=== PATIENT | female | born 1980 | race Caucasian/White ===

== ENCOUNTER 2017-02-28 16:59 | Emergency (ER) | payer SELFPAY ==
[~2017-02-28] VITALS: Ht 160 cm; Wt 54.9 kg
[~2017-02-28 16:59] MED LIST: ASPI-515 PO; CEFT2FRO2 IV; DOCU-30 PO; FERR325T20 PO; GABA100C8 PO; GABA300C10 PO; GABA600T2 PO; HUM100VI6 SC; HYDR-3240 PO; IBUP-1222 PO; INSU100C5 SQ-INSULIN; INSU100I18 SQ-INSULIN; INSU100I28 SQ-INSULIN; INSU100I7 SQ-INSULIN; INSU100V5 SQ-INSULIN; INSU100V8 SQ; METF-86 PO; METO10TA2 PO; METO5TAB57 PO; OMEP40CA6 PO; ONDA4TAB7 PO; OXYC1TAB7 PO; TRAM-385 PO; TRAM50TA2 PO
[2017-02-28] MEDS ORDERED: SODIUM CHLORIDE FLUSH 10ML SYR IVF ONE (17:30)
[2017-02-28] MEDS ORDERED: ONDANSETRON 2MG/ML, 2ML IVPush ONE (17:30)
[2017-02-28] MEDS ORDERED: ONDANSETRON 2MG/ML, 2ML ONE (17:42)
[2017-02-28 18:05] LABS: BLOOD UREA NITROGEN 9 mg/dL (7-18)
[2017-02-28] MEDS ORDERED: SODIUM CHLORIDE 0.9% 1,000ML IVBOLUS ONE (18:30)
[2017-02-28] MEDS ORDERED: KETOROLAC 30 MG/1 ML ONE (18:51)
[2017-02-28] MEDS ORDERED: KETOROLAC 30 MG/1 ML IVPush ONE (19:00)
[2017-02-28 19:51] VITALS: BP 119/75
== END 2017-02-28 19:53 | disposition home or self-care (01) ==
LOC: ED 18:05
DX: R10.11 Right upper quadrant pain (principal); E11.65 Type 2 diabetes mellitus with hyperglycemia; Z86.73 Personal history of transient ischemic attack (TIA), and cerebral infarction without residual deficits; Z90.49 Acquired absence of other specified parts of digestive tract; E11.40 Type 2 diabetes mellitus with diabetic neuropathy, unspecified
CPT/HCPCS: 36415; 74176; 80048; 81003; 82040; 84703; 85025; 96361; 96374; 96375; 99285; J1885; J2405; J7030

== ENCOUNTER 2017-04-01 01:03 | Emergency (ER) | payer SELFPAY ==
[~2017-04-01] VITALS: Ht 160 cm; Wt 54.2 kg
[~2017-04-01 01:03] MED LIST changes: +GABA-826 PO; -GABA100C8 PO
[2017-04-01] MEDS ORDERED: SODIUM CHLORIDE FLUSH 10ML SYR IVF ONE (03:00)
[2017-04-01] MEDS ORDERED: SODIUM CHLORIDE 0.9% 1,000ML IVBOLUS ONE (03:00)
[2017-04-01] MEDS ORDERED: ONDANSETRON 2MG/ML, 2ML IVPush ONE (03:00)
[2017-04-01] MEDS ORDERED: MORPHINE SULFATE 4 MG/ML, 1ML IVPush PRN (03:00)
[2017-04-01] MEDS ORDERED: MORPHINE SULFATE 4 MG/ML, 1ML ONE (03:08)
[2017-04-01] MEDS ORDERED: ONDANSETRON 2MG/ML, 2ML ONE (03:08)
[2017-04-01 03:20] LABS: ASPARTATE AMINO TRANSFERASE 15 U/L (15-37); BLOOD UREA NITROGEN 17 mg/dL (7-18)
[2017-04-01 03:25] LABS: IS PT STATUS REG ER OR PRE ER? YES
[2017-04-01 04:43] VITALS: BP 103/67
== END 2017-04-01 04:46 | disposition home or self-care (01) ==
LOC: ED 04:30
DX: R07.89 Other chest pain (principal); E11.65 Type 2 diabetes mellitus with hyperglycemia; E87.1 Hypo-osmolality and hyponatremia; K21.9 Gastro-esophageal reflux disease without esophagitis; Z79.4 Long term (current) use of insulin; F17.200 Nicotine dependence, unspecified, uncomplicated
CPT/HCPCS: 36415; 71020; 80053; 82010; 82803; 82962; 84484; 85025; 85379; 93005; 96361; 96374; 96375; 99285; J2405; J7030

== ENCOUNTER 2017-05-01 23:41 | Emergency (ER) | payer OTHER ==
[~2017-05-01] VITALS: Ht 160 cm; Wt 58.2 kg
[2017-05-02] MEDS ORDERED: SODIUM CHLORIDE FLUSH 10ML SYR IVF ONE
[2017-05-02] MEDS ORDERED: ONDANSETRON 2MG/ML, 2ML IVPush ONE
[2017-05-02] MEDS ORDERED: SODIUM CHLORIDE 0.9% 1,000ML IV ONE
[2017-05-02] MEDS ORDERED: MORPHINE SULFATE 4 MG/ML, 1ML IVPush PRN
[2017-05-02 00:15] LABS: HEMATOCRIT 40.9 % (34.6-47.8); HEMOGLOBIN 13.9 g/dL (11.7-16.4); WHITE BLOOD COUNT 7.4 x10^3/uL (3.4-10)
[2017-05-02] MEDS ORDERED: MORPHINE SULFATE 4 MG/ML, 1ML ONE (00:25)
[2017-05-02] MEDS ORDERED: ONDANSETRON 2MG/ML, 2ML ONE (00:25)
[2017-05-02 00:40] LABS: BLOOD UREA NITROGEN 19 mg/dL (7-18)
[2017-05-02 00:46] LABS: ASPARTATE AMINO TRANSFERASE 20 U/L (15-37)
[2017-05-02 01:28] VITALS: BP 106/61
[2017-05-02] MEDS ORDERED: POTASSIUM CHLORIDE 20 MEQ TAB.ER.PRT ONE (02:19)
[2017-05-02] MEDS ORDERED: INSULIN SINGLE DOSE, ER SQ-INSULIN ONE (02:20)
== END 2017-05-02 05:07 ==
LOC: ED 23:59
DX: R10.9 Unspecified abdominal pain (principal); E11.65 Type 2 diabetes mellitus with hyperglycemia; Z79.4 Long term (current) use of insulin; E87.1 Hypo-osmolality and hyponatremia; Z91.14 Patient's other noncompliance with medication regimen; K21.9 Gastro-esophageal reflux disease without esophagitis; Z90.49 Acquired absence of other specified parts of digestive tract; Z91.19 Patient's noncompliance with other medical treatment and regimen
CPT/HCPCS: 36415; 74176; 80053; 81003; 82010; 82803; 82962; 83690; 84703; 85025; 96361; 96374; 96375; 99285; J2405; J7030

== ENCOUNTER 2017-06-15 18:48 | Emergency (ER) | payer OTHER ==
[~2017-06-15] VITALS: Ht 160 cm; Wt 57.8 kg
[~2017-06-15 18:48] MED LIST changes: +DOCU-131 PO; -DOCU-30 PO; +FERR325T18 PO; -FERR325T20 PO; +METF-162 PO; -METF-86 PO
[2017-06-15] MEDS ORDERED: SODIUM CHLORIDE 0.9% 1,000ML IVBOLUS ONE (19:30)
[2017-06-15] MEDS ORDERED: ONDANSETRON 2MG/ML, 2ML IVPush ONE (19:30)
[2017-06-15] MEDS ORDERED: SODIUM CHLORIDE FLUSH 10ML SYR IVF ONE (19:30)
[2017-06-15] MEDS ORDERED: MORPHINE SULFATE 4 MG/ML, 1ML IVPush PRN (19:30)
[2017-06-15 19:35] LABS: PATH.CAST-FLAG NOT PRESENT; SPERM-FLAG NOT PRESENT; SRC-FLAG NOT PRESENT; XTAL-FLAG NOT PRESENT; YLC-FLAG NOT PRESENT
[2017-06-15] MEDS ORDERED: MORPHINE SULFATE 4 MG/ML, 1ML ONE (19:41)
[2017-06-15] MEDS ORDERED: ONDANSETRON 2MG/ML, 2ML ONE (19:41)
[2017-06-15 19:51] LABS: ASPARTATE AMINO TRANSFERASE 12 U/L (15-37); BLOOD UREA NITROGEN 12 mg/dL (7-18)
[2017-06-15 19:52] LABS: HEMOGLOBIN 13.8 g/dL (11.7-16.4); WHITE BLOOD COUNT 5.8 x10^3/uL (3.4-10)
[2017-06-15] MEDS ORDERED: CEFTRIAXONE PMX 1GM/50ML 50 ML ONE (20:56)
[2017-06-15] MEDS ORDERED: CEFTRIAXONE PMX 1GM/50ML 50 ML IV ONE (21:00)
[2017-06-15 21:24] VITALS: BP 105/67
== END 2017-06-15 21:26 | disposition home or self-care (01) ==
LOC: ED 21:06
DX: N30.01 Acute cystitis with hematuria (principal); K21.9 Gastro-esophageal reflux disease without esophagitis; E11.65 Type 2 diabetes mellitus with hyperglycemia; Z86.73 Personal history of transient ischemic attack (TIA), and cerebral infarction without residual deficits
CPT/HCPCS: 36415; 76770; 76857; 80053; 81001; 83690; 84703; 85025; 87086; 96361; 96365; 96375; 99285; J0696; J2405; J7030

== ENCOUNTER 2017-06-16 19:33 | Emergency (ER) | payer OTHER ==
[~2017-06-16] VITALS: Ht 160 cm; Wt 57.7 kg
[2017-06-16] MEDS ORDERED: CEFTRIAXONE PMX 1GM/50ML 50 ML IVPB ONE (20:00)
[2017-06-16] MEDS ORDERED: SODIUM CHLORIDE FLUSH 10ML SYR IVF ONE (20:00)
[2017-06-16] MEDS ORDERED: MORPHINE SULFATE 4 MG/ML, 1ML IVPush PRN (20:00)
[2017-06-16] MEDS ORDERED: SODIUM CHLORIDE 0.9% 1,000ML IVBOLUS ONE (20:00)
[2017-06-16] MEDS ORDERED: ONDANSETRON 2MG/ML, 2ML IVPush ONE (20:00)
[2017-06-16] MEDS ORDERED: MORPHINE SULFATE 4 MG/ML, 1ML ONE (20:29)
[2017-06-16] MEDS ORDERED: ONDANSETRON 2MG/ML, 2ML ONE (20:29)
[2017-06-16] MEDS ORDERED: CEFTRIAXONE PMX 1GM/50ML 50 ML ONE (20:32)
[2017-06-16 20:37] LABS: HEMATOCRIT 41.7 % (34.6-47.8); HEMOGLOBIN 14.1 g/dL (11.7-16.4); WHITE BLOOD COUNT 6.1 x10^3/uL (3.4-10)
[2017-06-16 20:45] LABS: ASPARTATE AMINO TRANSFERASE 10 U/L (15-37); BLOOD UREA NITROGEN 12 mg/dL (7-18)
[2017-06-16 22:31] VITALS: BP 122/61
[2017-06-16] MEDS ORDERED: OMNIPAQUE 350 MG/ML, 100ML BOTTLE ONE (23:04)
== END 2017-06-16 22:34 | disposition home or self-care (01) ==
LOC: ED 21:19
DX: N30.01 Acute cystitis with hematuria (principal); K21.9 Gastro-esophageal reflux disease without esophagitis; E11.65 Type 2 diabetes mellitus with hyperglycemia; E11.43 Type 2 diabetes mellitus with diabetic autonomic (poly)neuropathy; K31.84 Gastroparesis; Z90.49 Acquired absence of other specified parts of digestive tract
CPT/HCPCS: 36415; 74177; 80053; 83690; 85025; 96365; 96366; 96375; 99285; J0696; J2405; J7030; Q9967

== ENCOUNTER 2017-08-04 17:56 | Emergency (ER) | payer SELFPAY ==
[~2017-08-04] VITALS: Ht 160 cm; Wt 56.5 kg
[2017-08-04] MEDS ORDERED: ONDANSETRON 2MG/ML, 2ML IVPush ONE (18:30)
[2017-08-04] MEDS ORDERED: SODIUM CHLORIDE FLUSH 10ML SYR IVF ONE (18:30)
[2017-08-04] MEDS ORDERED: SODIUM CHLORIDE 0.9% 1,000ML IVBOLUS ONE (18:30)
[2017-08-04] MEDS ORDERED: HYDROmorphone 1 MG/ML, 1ML ONE ×2 (18:33→19:06)
[2017-08-04] MEDS ORDERED: ONDANSETRON 2MG/ML, 2ML ONE (18:34)
[2017-08-04] MEDS: HYDROmorphone 1 MG/ML, 1ML IVPush PRN ×2 (18:36→19:08)
[2017-08-04 18:41] LABS: HEMATOCRIT 44.4 % (34.6-47.8); HEMOGLOBIN 14.9 g/dL (11.7-16.4); WHITE BLOOD COUNT 7.2 x10^3/uL (3.4-10)
[2017-08-04 18:50] LABS: ASPARTATE AMINO TRANSFERASE 11 U/L (15-37); BLOOD UREA NITROGEN 10 mg/dL (7-18)
[2017-08-04 18:55] LABS: PATH.CAST-FLAG NOT PRESENT; SPERM-FLAG NOT PRESENT; SRC-FLAG NOT PRESENT; XTAL-FLAG NOT PRESENT; YLC-FLAG NOT PRESENT
[2017-08-04 18:58] VITALS: BP 118/70
== END 2017-08-04 19:14 | disposition home or self-care (01) ==
LOC: ED 18:47
DX: G89.29 Other chronic pain (principal); R10.31 Right lower quadrant pain; R10.32 Left lower quadrant pain; E11.65 Type 2 diabetes mellitus with hyperglycemia; F17.200 Nicotine dependence, unspecified, uncomplicated; K21.9 Gastro-esophageal reflux disease without esophagitis; E11.43 Type 2 diabetes mellitus with diabetic autonomic (poly)neuropathy; K31.84 Gastroparesis; Z90.49 Acquired absence of other specified parts of digestive tract
CPT/HCPCS: 36415; 80053; 81001; 83690; 84703; 85025; 96361; 96374; 96375; 96376; 99284; J1170; J2405; J7030

== ENCOUNTER 2017-08-06 23:46 | Emergency (ER) | payer SELFPAY ==
[~2017-08-06] VITALS: Ht 160 cm; Wt 57.3 kg
[2017-08-07] MEDS ORDERED: TRAM-47 PO (00:02)
[2017-08-07] MEDS ORDERED: ONDANSETRON 2MG/ML, 2ML IVPush ONE (00:30)
[2017-08-07] MEDS ORDERED: HYDROmorphone 1 MG/ML, 1ML ONE ×2 (00:39→01:49)
[2017-08-07] MEDS ORDERED: ONDANSETRON 2MG/ML, 2ML ONE (00:39)
[2017-08-07 00:54] LABS: PATH.CAST-FLAG NOT PRESENT; SPERM-FLAG NOT PRESENT; SRC-FLAG NOT PRESENT; XTAL-FLAG NOT PRESENT; YLC-FLAG NOT PRESENT
[2017-08-07 00:57] LABS: HEMATOCRIT 40.9 % (34.6-47.8); WHITE BLOOD COUNT 6.3 x10^3/uL (3.4-10)
[2017-08-07] MEDS: HYDROmorphone 1 MG/ML, 1ML IVPush PRN ×2 (00:57→01:57)
[2017-08-07 01:09] LABS: ASPARTATE AMINO TRANSFERASE 18 U/L (15-37); BLOOD UREA NITROGEN 12 mg/dL (7-18)
[2017-08-07] MEDS ORDERED: METOCLOPRAMIDE 5 MG/ML, 2ML IVPush ONE (01:30)
[2017-08-07] MEDS ORDERED: DIPHENHYDRAMINE 50 MG/ML, 1ML IVPush ONE (01:30)
[2017-08-07] MEDS ORDERED: OMNIPAQUE 350 MG/ML, 100ML BOTTLE ONE (01:33)
[2017-08-07] MEDS ORDERED: METOCLOPRAMIDE 5 MG/ML, 2ML ONE (01:49)
[2017-08-07] MEDS ORDERED: DIPHENHYDRAMINE 50 MG/ML, 1ML ONE (01:49)
[2017-08-07 04:02] VITALS: BP 111/64
== END 2017-08-07 04:07 | disposition home or self-care (01) ==
LOC: ED 08-07 01:26
DX: G89.29 Other chronic pain (principal); R10.84 Generalized abdominal pain; R10.31 Right lower quadrant pain; E10.65 Type 1 diabetes mellitus with hyperglycemia; K21.9 Gastro-esophageal reflux disease without esophagitis; F17.200 Nicotine dependence, unspecified, uncomplicated; Z90.49 Acquired absence of other specified parts of digestive tract; Z86.73 Personal history of transient ischemic attack (TIA), and cerebral infarction without residual deficits
CPT/HCPCS: 36415; 74177; 80053; 81001; 82962; 83690; 85025; 96374; 96375; 96376; 99285; J1170; J1200; J2405; J2765; Q9967

== ENCOUNTER 2017-09-19 19:52 | Emergency (ER) | payer OTHER ==
[~2017-09-19] VITALS: Ht 160 cm; Wt 55.0 kg
[~2017-09-19 19:52] MED LIST changes: +TRAM-47 PO
[2017-09-19 20:45] LABS: MICROSCOPIC AUTO
[2017-09-19] MEDS ORDERED: INSU100V8 SQ (20:47)
[2017-09-19] MEDS ORDERED: ONDANSETRON 2MG/ML, 2ML ONE (20:54)
[2017-09-19] MEDS ORDERED: MORPHINE SULFATE 4 MG/ML, 1ML ONE (20:54)
[2017-09-19 20:55] LABS: BASOPHILS # (AUTO) 0.02 x10^3/uL (0-0.1); BASOPHILS % (AUTO) 0 % (0-1); EOSINOPHILS # (AUTO) 0.04 x10^3/uL (0-0.4); EOSINOPHILS % (AUTO) 1 % (1-7); LYMPHOCYTES # (AUTO) 2.31 x10^3/uL (1-3.4); LYMPHOCYTES % (AUTO) 27 % (22-44); MD NO; MEAN CORPUSCULAR HEMOGLOBIN 28.4 pg (27.0-34.8); MEAN CORPUSCULAR HGB CONC 33.8 g/dL (32.4-35.8); MEAN CORPUSCULAR VOLUME 84.2 fL (80-100); MEAN PLATELET VOLUME 11.6 fL (7.4-10.4); MONOCYTES # (AUTO) 0.32 x10^3/uL (0.2-0.8); MONOCYTES % (AUTO) 4 % (2-9); NEUTROPHILS # (AUTO) 5.78 x10^3/uL (1.8-6.8); NEUTROPHILS % (AUTO) 68 % (42-75); PLATELET COUNT 200 x10^3/uL (130-400); RED BLOOD COUNT 4.89 x10^6/uL (3.82-5.3); RED CELL DISTRIBUTION WIDTH 13.8 % (9.6-15.2)
[2017-09-19] MEDS ORDERED: SODIUM CHLORIDE 0.9% 1,000ML IVBOLUS ONE (21:00)
[2017-09-19] MEDS ORDERED: SODIUM CHLORIDE FLUSH 10ML SYR IVF ONE (21:00)
[2017-09-19] MEDS ORDERED: ONDANSETRON 2MG/ML, 2ML IVPush ONE (21:00)
[2017-09-19] MEDS ORDERED: MORPHINE SULFATE 4 MG/ML, 1ML IVPush PRN (21:00)
[2017-09-19 21:04] LABS: ALBUMIN 3.5 g/dL (3.4-5.0); ANION GAP 10 mmol/L (5-15); CALCIUM 9.1 mg/dL (8.5-10.1); CHLORIDE 98 mmol/L (98-107)
[2017-09-19 21:10] LABS: ALANINE AMINOTRANSFERASE 17 U/L (12-78); ALKALINE PHOSPHATASE 86 U/L (45-117); BILIRUBIN,TOTAL 0.2 mg/dL (0.2-1.0); CREATININE 0.79 mg/dL (0.55-1.02); TOTAL PROTEIN 7.7 g/dL (6.4-8.2)
[2017-09-19 21:15] LABS: ACETONE, SERUM Negative (Negative)
[2017-09-19] MEDS ORDERED: INSULIN REGULAR 100 UNITS/ML, 3ML VIAL IVPush ONE (21:30)
[2017-09-19 22:01] VITALS: BP 113/74
== END 2017-09-19 22:18 | disposition home or self-care (01) ==
LOC: ED 20:28
DX: N30.00 Acute cystitis without hematuria (principal); R11.2 Nausea with vomiting, unspecified; Z86.73 Personal history of transient ischemic attack (TIA), and cerebral infarction without residual deficits; K21.9 Gastro-esophageal reflux disease without esophagitis; G89.29 Other chronic pain; R10.9 Unspecified abdominal pain
CPT/HCPCS: 36415; 80053; 81001; 82010; 82962; 83690; 84703; 85025; 96374; 96375; 99284; J2405; J7030

== ENCOUNTER 2017-09-30 00:21 | Emergency (ER) | payer OTHER ==
[~2017-09-30] VITALS: Ht 160 cm; Wt 57.0 kg
[2017-09-30] MEDS ORDERED: KETOROLAC 30 MG/1 ML IVPush ONE (01:00)
[2017-09-30] MEDS ORDERED: SODIUM CHLORIDE FLUSH 10ML SYR IVF ONE (01:00)
[2017-09-30] MEDS ORDERED: SODIUM CHLORIDE 0.9% 1,000ML IVBOLUS ONE (01:00)
[2017-09-30] MEDS ORDERED: MORPHINE SULFATE 4 MG/ML, 1ML IVPush PRN (01:00)
[2017-09-30] MEDS ORDERED: ONDANSETRON 2MG/ML, 2ML IVPush ONE (01:00)
[2017-09-30 01:07] LABS: MICROSCOPIC INDICATED
[2017-09-30] MEDS ORDERED: KETOROLAC 30 MG/1 ML ONE (01:07)
[2017-09-30] MEDS ORDERED: ONDANSETRON 2MG/ML, 2ML ONE (01:07)
[2017-09-30] MEDS ORDERED: MORPHINE SULFATE 4 MG/ML, 1ML ONE (01:07)
[2017-09-30 01:16] LABS: BASOPHILS # (AUTO) 0.01 x10^3/uL (0-0.1); BASOPHILS % (AUTO) 0 % (0-1); EOSINOPHILS # (AUTO) 0.09 x10^3/uL (0-0.4); EOSINOPHILS % (AUTO) 2 % (1-7); LYMPHOCYTES # (AUTO) 2.23 x10^3/uL (1-3.4); LYMPHOCYTES % (AUTO) 38 % (22-44); MD NO; MEAN CORPUSCULAR HEMOGLOBIN 28.3 pg (27.0-34.8); MEAN CORPUSCULAR HGB CONC 33.7 g/dL (32.4-35.8); MEAN CORPUSCULAR VOLUME 83.9 fL (80-100); MEAN PLATELET VOLUME 11.4 fL (7.4-10.4); MONOCYTES # (AUTO) 0.42 x10^3/uL (0.2-0.8); MONOCYTES % (AUTO) 7 % (2-9); NEUTROPHILS # (AUTO) 3.11 x10^3/uL (1.8-6.8); NEUTROPHILS % (AUTO) 53 % (42-75); PLATELET COUNT 207 x10^3/uL (130-400); RED BLOOD COUNT 4.83 x10^6/uL (3.82-5.3); RED CELL DISTRIBUTION WIDTH 14.4 % (9.6-15.2)
[2017-09-30 01:18] LABS: CULTURE INDICATED? NO
[2017-09-30 01:23] LABS: ALANINE AMINOTRANSFERASE 20 U/L (12-78); ALBUMIN 3.5 g/dL (3.4-5.0); ANION GAP 11 mmol/L (5-15); CALCIUM 8.5 mg/dL (8.5-10.1); CHLORIDE 98 mmol/L (98-107); CREATININE 0.87 mg/dL (0.55-1.02)
[2017-09-30 01:28] LABS: ALKALINE PHOSPHATASE 90 U/L (45-117); BILIRUBIN,TOTAL 0.3 mg/dL (0.2-1.0); TOTAL PROTEIN 7.7 g/dL (6.4-8.2)
[2017-09-30] MEDS ORDERED: INSULIN REGULAR 100 UNITS/ML, 3ML VIAL IVPush ONE (02:00)
[2017-09-30 02:43] VITALS: BP 103/71
== END 2017-09-30 02:45 | disposition home or self-care (01) ==
LOC: ED 00:55
DX: N20.2 Calculus of kidney with calculus of ureter (principal); E11.65 Type 2 diabetes mellitus with hyperglycemia; F17.200 Nicotine dependence, unspecified, uncomplicated; K21.9 Gastro-esophageal reflux disease without esophagitis
CPT/HCPCS: 36415; 74018; 76770; 80053; 81001; 82962; 84703; 85025; 96361; 96374; 96375; 99285; J1885; J2405; J7030

== ENCOUNTER 2017-10-01 00:31 | Emergency (ER) | payer OTHER ==
[~2017-10-01] VITALS: Ht 160 cm; Wt 57.0 kg
[2017-10-01] MEDS ORDERED: KETOROLAC 30 MG/1 ML IM ONE (01:00)
[2017-10-01] MEDS ORDERED: KETOROLAC 30 MG/1 ML ONE (01:06)
[2017-10-01 01:22] VITALS: BP 117/75
[2017-10-01 01:27] LABS: BASOPHILS # (AUTO) 0.03 x10^3/uL (0-0.1); BASOPHILS % (AUTO) 0 % (0-1); EOSINOPHILS # (AUTO) 0.09 x10^3/uL (0-0.4); EOSINOPHILS % (AUTO) 2 % (1-7); LYMPHOCYTES # (AUTO) 2.28 x10^3/uL (1-3.4); LYMPHOCYTES % (AUTO) 38 % (22-44); MD NO; MEAN CORPUSCULAR HEMOGLOBIN 28.2 pg (27.0-34.8); MEAN CORPUSCULAR HGB CONC 33.8 g/dL (32.4-35.8); MEAN CORPUSCULAR VOLUME 83.3 fL (80-100); MEAN PLATELET VOLUME 11.4 fL (7.4-10.4); MONOCYTES % (AUTO) 5 % (2-9); NEUTROPHILS # (AUTO) 3.29 x10^3/uL (1.8-6.8); NEUTROPHILS % (AUTO) 55 % (42-75); PLATELET COUNT 180 x10^3/uL (130-400); RED CELL DISTRIBUTION WIDTH 14.4 % (9.6-15.2)
[2017-10-01 01:38] LABS: ALBUMIN 3.2 g/dL (3.4-5.0); ANION GAP 8 mmol/L (5-15); CALCIUM 8.3 mg/dL (8.5-10.1); CHLORIDE 102 mmol/L (98-107); CREATININE 0.74 mg/dL (0.55-1.02)
[2017-10-01] MEDS ORDERED: INSULIN REGULAR 100 UNITS/ML, 3ML VIAL SQ-INSULIN ONE (02:00)
[2017-10-01] MEDS ORDERED: INSULIN REGULAR 100 UNITS/ML, 3ML VIAL ONE (02:31)
== END 2017-10-01 02:47 | disposition home or self-care (01) ==
LOC: ED 01:33
DX: N20.1 Calculus of ureter (principal); E11.65 Type 2 diabetes mellitus with hyperglycemia; K21.9 Gastro-esophageal reflux disease without esophagitis; Z86.73 Personal history of transient ischemic attack (TIA), and cerebral infarction without residual deficits; F17.200 Nicotine dependence, unspecified, uncomplicated; Z90.49 Acquired absence of other specified parts of digestive tract; Z79.4 Long term (current) use of insulin
CPT/HCPCS: 36415; 80048; 82040; 85025; 96372; 99284; J1885

== ENCOUNTER 2017-11-30 17:32 | Emergency (ER) | payer SELFPAY ==
[~2017-11-30] VITALS: Ht 160 cm; Wt 63.0 kg
[2017-11-30] MEDS ORDERED: SODIUM CHLORIDE FLUSH 10ML SYR IVF ONE (18:00)
[2017-11-30 18:22] LABS: MICROSCOPIC NOT IND
[2017-11-30 18:28] LABS: BASOPHILS # (AUTO) 0.05 x10^3/uL (0-0.1); BASOPHILS % (AUTO) 1 % (0-1); EOSINOPHILS # (AUTO) 0.11 x10^3/uL (0-0.4); EOSINOPHILS % (AUTO) 1 % (1-7); LYMPHOCYTES # (AUTO) 2.51 x10^3/uL (1-3.4); LYMPHOCYTES % (AUTO) 29 % (22-44); MD NO; MEAN CORPUSCULAR HEMOGLOBIN 27.1 pg (27.0-34.8); MEAN CORPUSCULAR HGB CONC 33.2 g/dL (32.4-35.8); MEAN CORPUSCULAR VOLUME 81.6 fL (80-100); MEAN PLATELET VOLUME 9.7 fL (7.4-10.4); MONOCYTES # (AUTO) 0.38 x10^3/uL (0.2-0.8); MONOCYTES % (AUTO) 5 % (2-9); NEUTROPHILS # (AUTO) 5.47 x10^3/uL (1.8-6.8); NEUTROPHILS % (AUTO) 64 % (42-75); PLATELET COUNT 289 x10^3/uL (130-400); RED BLOOD COUNT 4.79 x10^6/uL (3.82-5.3); RED CELL DISTRIBUTION WIDTH 15.4 % (9.6-15.2)
[2017-11-30 18:29] LABS: CULTURE INDICATED? NO
[2017-11-30] MEDS ORDERED: ONDANSETRON 2MG/ML, 2ML ONE (18:29)
[2017-11-30] MEDS ORDERED: ONDANSETRON 2MG/ML, 2ML IVPush ONE (18:30)
[2017-11-30 18:38] LABS: ALANINE AMINOTRANSFERASE 19 U/L (12-78); ALBUMIN 3.8 g/dL (3.4-5.0); ANION GAP 9 mmol/L (5-15); CHLORIDE 104 mmol/L (98-107); CREATININE 0.56 mg/dL (0.55-1.02)
[2017-11-30 18:43] LABS: ALKALINE PHOSPHATASE 92 U/L (45-117); BILIRUBIN,TOTAL 0.3 mg/dL (0.2-1.0); TOTAL PROTEIN 8.4 g/dL (6.4-8.2)
[2017-11-30] MEDS ORDERED: OMNIPAQUE 350 MG/ML, 100ML BOTTLE ONE (19:24)
[2017-11-30] MEDS ORDERED: IBUPROFEN 200 MG TABLET ONE (19:39)
[2017-11-30] MEDS ORDERED: IBUPROFEN 200 MG TABLET PO ONE (20:00)
[2017-11-30 21:04] VITALS: BP 115/63
== END 2017-11-30 21:06 | disposition home or self-care (01) ==
LOC: ED 20:17
DX: R10.12 Left upper quadrant pain (principal); Z90.49 Acquired absence of other specified parts of digestive tract; E11.9 Type 2 diabetes mellitus without complications; Z79.4 Long term (current) use of insulin
CPT/HCPCS: 36415; 74177; 80053; 81003; 82962; 83690; 84703; 85025; 96374; 99285; J2405; Q9967

== ENCOUNTER 2018-02-08 12:00 | Emergency (ER) | payer SELFPAY ==
[~2018-02-08] VITALS: Ht 160 cm; Wt 62.6 kg
[2018-02-08 13:26] LABS: CULTURE INDICATED? NO; MICROSCOPIC NOT IND
[2018-02-08] MEDS ORDERED: METOCLOPRAMIDE 5 MG/ML, 2ML IVPush ONE (13:30)
[2018-02-08] MEDS ORDERED: SODIUM CHLORIDE FLUSH 10ML SYR IVF ONE (13:30)
[2018-02-08] MEDS ORDERED: SODIUM CHLORIDE 0.9% 1,000ML IVBOLUS ONE (13:30)
[2018-02-08 13:44] LABS: BASOPHILS # (AUTO) 0.02 x10^3/uL (0-0.1); BASOPHILS % (AUTO) 0 % (0-1); EOSINOPHILS % (AUTO) 2 % (1-7); LYMPHOCYTES # (AUTO) 1.81 x10^3/uL (1-3.4); LYMPHOCYTES % (AUTO) 29 % (22-44); MD NO; MEAN CORPUSCULAR HEMOGLOBIN 25.7 pg (27.0-34.8); MEAN CORPUSCULAR HGB CONC 32.8 g/dL (32.4-35.8); MEAN CORPUSCULAR VOLUME 78.5 fL (80-100); MEAN PLATELET VOLUME 10.9 fL (7.4-10.4); MONOCYTES % (AUTO) 6 % (2-9); NEUTROPHILS # (AUTO) 3.87 x10^3/uL (1.8-6.8); NEUTROPHILS % (AUTO) 63 % (42-75); PLATELET COUNT 273 x10^3/uL (130-400); RED BLOOD COUNT 4.79 x10^6/uL (3.82-5.3); RED CELL DISTRIBUTION WIDTH 14.8 % (9.6-15.2)
[2018-02-08 13:55] LABS: ALANINE AMINOTRANSFERASE 23 U/L (12-78); ALBUMIN 3.6 g/dL (3.4-5.0); ANION GAP 6 mmol/L (5-15); CALCIUM 8.8 mg/dL (8.5-10.1); CHLORIDE 105 mmol/L (98-107)
[2018-02-08 14:02] LABS: ALKALINE PHOSPHATASE 74 U/L (45-117); BILIRUBIN,TOTAL 0.3 mg/dL (0.2-1.0); TOTAL PROTEIN 7.5 g/dL (6.4-8.2)
[2018-02-08] MEDS ORDERED: METOCLOPRAMIDE 5 MG/ML, 2ML ONE (14:13)
[2018-02-08] MEDS ORDERED: INSU100C SQ-INSULIN (14:24)
[2018-02-08] MEDS ORDERED: INSU100V13 SQ-INSULIN (14:25)
[2018-02-08 14:31] VITALS: BP 112/69
[2018-02-08] MEDS ORDERED: MAALOX/HYOSCYAMINE/LIDOCAINE 45 ML BTL ONE (14:35)
[2018-02-08] MEDS ORDERED: MAALOX/HYOSCYAMINE/LIDOCAINE 45 ML BTL PO ONE (15:30)
== END 2018-02-08 16:05 | disposition home or self-care (01) ==
LOC: ED 13:59
DX: R10.13 Epigastric pain (principal); R11.2 Nausea with vomiting, unspecified; R19.7 Diarrhea, unspecified; E11.9 Type 2 diabetes mellitus without complications; K21.9 Gastro-esophageal reflux disease without esophagitis; Z90.49 Acquired absence of other specified parts of digestive tract; Z98.51 Tubal ligation status
CPT/HCPCS: 36415; 80053; 81003; 83690; 84703; 85025; 93005; 96374; 99285; J2765; J7030

== ENCOUNTER 2018-06-20 19:40 | Emergency (ER) | payer OTHER ==
[~2018-06-20] VITALS: Ht 160 cm; Wt 59.0 kg
[~2018-06-20 19:40] MED LIST changes: +INSU100C SQ-INSULIN; +INSU100V13 SQ-INSULIN
[2018-06-20 19:43] VITALS: BP 127/61
[2018-06-20] MEDS ORDERED: METHOCARBAMOL 750 MG TABLET ONE (20:39)
[2018-06-20] MEDS ORDERED: KETOROLAC 30 MG/1 ML ONE (20:39)
[2018-06-20] MEDS ORDERED: KETOROLAC 30 MG/1 ML IM ONE (21:00)
[2018-06-20] MEDS ORDERED: METHOCARBAMOL 750 MG TABLET PO ONE (21:00)
== END 2018-06-20 20:47 | disposition home or self-care (01) ==
LOC: ED 20:40
DX: S32.020A Wedge compression fracture of second lumbar vertebra, initial encounter for closed fracture (principal); E11.40 Type 2 diabetes mellitus with diabetic neuropathy, unspecified; K21.9 Gastro-esophageal reflux disease without esophagitis; E11.65 Type 2 diabetes mellitus with hyperglycemia; Z86.73 Personal history of transient ischemic attack (TIA), and cerebral infarction without residual deficits; X58.XXXA Exposure to other specified factors, initial encounter; Y93.89 Activity, other specified; Y92.89 Other specified places as the place of occurrence of the external cause; Y99.8 Other external cause status
CPT/HCPCS: 72110; 72220; 96372; 99284; J1885

== ENCOUNTER 2018-07-30 18:03 | Emergency (ER) | payer OTHER ==
[~2018-07-30] VITALS: Ht 160 cm; Wt 62.5 kg
[2018-07-30] MEDS ORDERED: ONDANSETRON ODT 4 MG PO ONE (18:30)
[2018-07-30] MEDS ORDERED: ONDANSETRON ODT 4 MG ONE (18:38)
[2018-07-30 18:45] LABS: BASOPHILS # (AUTO) 0.02 x10^3/uL (0-0.1); BASOPHILS % (AUTO) 0 % (0-1); EOSINOPHILS # (AUTO) 0.06 x10^3/uL (0-0.4); EOSINOPHILS % (AUTO) 1 % (1-7); LYMPHOCYTES # (AUTO) 1.84 x10^3/uL (1-3.4); LYMPHOCYTES % (AUTO) 23 % (22-44); MD NO; MEAN CORPUSCULAR HEMOGLOBIN 23.3 pg (27.0-34.8); MEAN CORPUSCULAR HGB CONC 31.9 g/dL (32.4-35.8); MONOCYTES # (AUTO) 0.52 x10^3/uL (0.2-0.8); MONOCYTES % (AUTO) 7 % (2-9); NEUTROPHILS # (AUTO) 5.63 x10^3/uL (1.8-6.8); NEUTROPHILS % (AUTO) 70 % (42-75); PLATELET COUNT 321 x10^3/uL (130-400); RED BLOOD COUNT 4.65 x10^6/uL (3.82-5.3); RED CELL DISTRIBUTION WIDTH 16.8 % (9.6-15.2)
[2018-07-30 18:48] LABS: ALANINE AMINOTRANSFERASE 19 U/L (12-78); ALBUMIN 3.7 g/dL (3.4-5.0); ANION GAP 7 mmol/L (5-15); CALCIUM 8.7 mg/dL (8.5-10.1); CHLORIDE 102 mmol/L (98-107); CREATININE 0.54 mg/dL (0.55-1.02)
[2018-07-30 18:52] LABS: ALKALINE PHOSPHATASE 121 U/L (45-117); BILIRUBIN,TOTAL 0.2 mg/dL (0.2-1.0); TOTAL PROTEIN 8.2 g/dL (6.4-8.2)
[2018-07-30 19:28] LABS: MICROSCOPIC INDICATED
[2018-07-30 19:43] LABS: CULTURE INDICATED? NO
[2018-07-30 20:12] VITALS: BP 107/54
== END 2018-07-30 20:46 | disposition home or self-care (01) ==
LOC: ED 18:51
DX: R11.2 Nausea with vomiting, unspecified (principal); E11.649 Type 2 diabetes mellitus with hypoglycemia without coma; K21.9 Gastro-esophageal reflux disease without esophagitis; E11.40 Type 2 diabetes mellitus with diabetic neuropathy, unspecified; F17.200 Nicotine dependence, unspecified, uncomplicated
CPT/HCPCS: 36415; 80053; 81001; 82962; 84702; 85025; 93005; 99285; Q0162

== ENCOUNTER 2019-01-26 14:56 | Emergency (ER) | payer SELFPAY ==
[~2019-01-26] VITALS: Ht 160 cm; Wt 54.3 kg
[~2019-01-26 14:56] MED LIST changes: -GABA600T2 PO; +GABA600T7 PO
[2019-01-26 15:00] VITALS: BP 116/73
[2019-01-26 15:36] LABS: BASOPHILS # (AUTO) 0.02 x10^3/uL (0-0.1); BASOPHILS % (AUTO) 0 % (0-1); EOSINOPHILS # (AUTO) 0.13 x10^3/uL (0-0.4); EOSINOPHILS % (AUTO) 2 % (1-7); LYMPHOCYTES # (AUTO) 1.31 x10^3/uL (1-3.4); LYMPHOCYTES % (AUTO) 21 % (22-44); MD NO; MEAN CORPUSCULAR HEMOGLOBIN 22.8 pg (27.0-34.8); MEAN CORPUSCULAR HGB CONC 31.3 g/dL (32.4-35.8); MEAN CORPUSCULAR VOLUME 72.8 fL (80-100); MEAN PLATELET VOLUME 10.9 fL (7.4-10.4); MONOCYTES # (AUTO) 0.47 x10^3/uL (0.2-0.8); MONOCYTES % (AUTO) 8 % (2-9); NEUTROPHILS % (AUTO) 69 % (42-75); PLATELET COUNT 247 x10^3/uL (130-400); RED BLOOD COUNT 4.93 x10^6/uL (3.82-5.3); RED CELL DISTRIBUTION WIDTH 16.6 % (9.6-15.2)
[2019-01-26 15:43] LABS: ALBUMIN 3.5 g/dL (3.4-5.0); ANION GAP 9 mmol/L (5-15); CALCIUM 8.7 mg/dL (8.5-10.1); CHLORIDE 98 mmol/L (98-107)
== END 2019-01-26 17:21 | disposition home or self-care (01) ==
LOC: ED 17:15
DX: M25.561 Pain in right knee (principal); K21.9 Gastro-esophageal reflux disease without esophagitis; E11.40 Type 2 diabetes mellitus with diabetic neuropathy, unspecified; F17.200 Nicotine dependence, unspecified, uncomplicated
CPT/HCPCS: 36415; 80048; 82040; 85025; 99284

== ENCOUNTER 2019-02-14 23:47 | Emergency (ER) | payer SELFPAY ==
[~2019-02-14] VITALS: Ht 157.5 cm; Wt 53.0 kg
[2019-02-14] MEDS ORDERED: KEPPRA (23:54)
--- NOTE | 2019-02-14 23:57 | NUR ---
TAKEN TO ROOM 18, SEIZURE PADS APPLIED.
--- NOTE | 2019-02-15 | NUR ---
Pt presents to ed c/o having a seizure tonight. Hx of sz w/ med management. States has not had medication since . Unsure of how long sz lasted. States witness. Denies incontinence or oral trauma. Neuro intact in ed. A+ox4. All monitoring applied. Sz pads in place. Iv access tb established.
[2019-02-15] MEDS ORDERED: ONDANSETRON 2MG/ML, 2ML ONE (00:22)
[2019-02-15 00:30] LABS: PH, VENOUS 7.317 pH (7.320-7.420)
[2019-02-15] MEDS ORDERED: ONDANSETRON 2MG/ML, 2ML IVPush ONE (00:30)
[2019-02-15] MEDS ORDERED: LEVETIRACETAM 1,000 MG in SODIUM CHLORIDE 0.9% 100 ML IV ONE (00:30)
[2019-02-15 00:38] LABS: BASOPHILS # (AUTO) 0.03 x10^3/uL (0-0.1); BASOPHILS % (AUTO) 0 % (0-1); EOSINOPHILS # (AUTO) 0.03 x10^3/uL (0-0.4); EOSINOPHILS % (AUTO) 0 % (1-7); LYMPHOCYTES % (AUTO) 15 % (22-44); MD NO; MEAN CORPUSCULAR HEMOGLOBIN 23.5 pg (27.0-34.8); MEAN CORPUSCULAR HGB CONC 31.1 g/dL (32.4-35.8); MEAN CORPUSCULAR VOLUME 75.5 fL (80-100); MEAN PLATELET VOLUME 10.5 fL (7.4-10.4); MONOCYTES # (AUTO) 0.37 x10^3/uL (0.2-0.8); MONOCYTES % (AUTO) 4 % (2-9); NEUTROPHILS # (AUTO) 6.74 x10^3/uL (1.8-6.8); NEUTROPHILS % (AUTO) 80 % (42-75); PLATELET COUNT 265 x10^3/uL (130-400); RED BLOOD COUNT 4.41 x10^6/uL (3.82-5.3); RED CELL DISTRIBUTION WIDTH 15.2 % (9.6-15.2)
[2019-02-15 00:43] LABS: ALANINE AMINOTRANSFERASE 19 U/L (12-78); ALBUMIN 3.4 g/dL (3.4-5.0); ANION GAP 9 mmol/L (5-15); CALCIUM 8.4 mg/dL (8.5-10.1); CHLORIDE 102 mmol/L (98-107); CREATININE 0.68 mg/dL (0.55-1.02)
[2019-02-15 00:48] LABS: ALKALINE PHOSPHATASE 128 U/L (45-117); BILIRUBIN,TOTAL 0.2 mg/dL (0.2-1.0); TOTAL PROTEIN 7.4 g/dL (6.4-8.2)
--- NOTE | 2019-02-15 00:49 | NUR ---
Break RN: FSBS 318 mg /dl
[2019-02-15 01:09] LABS: ACETONE, SERUM Small (20mg/dL) mg/dL (Negative)
[2019-02-15 01:40] VITALS: BP 112/70
== END 2019-02-15 01:59 | disposition home or self-care (01) ==
LOC: ED 02-15 00:01
DX: G40.309 Generalized idiopathic epilepsy and epileptic syndromes, not intractable, without status epilepticus (principal); E11.65 Type 2 diabetes mellitus with hyperglycemia; K21.9 Gastro-esophageal reflux disease without esophagitis
CPT/HCPCS: 36415; 80053; 82010; 82803; 82962; 84703; 85025; 93005; 96365; 96375; 99284; J1953; J2405

== ENCOUNTER 2019-03-12 13:45 | Emergency (ER) | payer SELFPAY ==
[~2019-03-12] VITALS: Ht 160 cm; Wt 51.2 kg
[~2019-03-12 13:45] MED LIST changes: +KEPPRA; +LEVE500T53 PO
[2019-03-12] MEDS ORDERED: LEVETIRACETAM 500 MG TABLET ONE (14:24)
--- NOTE | 2019-03-12 14:26 | NUR ---
PT WITH HX OF SIEZURE'S. REPORTS SIEZURE YESTERDAY 03/11 AND STATES THAT SHE FEELS LIKE SHE IS GOING TO HAVE ANOTHER ONE. STATES THAT SHE USUALLY FEELS VERY WEAK AND FATIGUED PRIOR TO HAVING A SIEZURE. DR. CHU AT BEDSIDE, ASSESSMENT REVIEWED, QUESTIONS ANSWERED. ORDERS REC'D. CALL LIGHT W/I REACH. SIDE RAILS UP X 2 AND SIDE RAILS PADDED WITH BLANKETS
[2019-03-12] MEDS ORDERED: FENTANYL PF 100 MCG/2ML IVPush PRN (14:30)
[2019-03-12] MEDS ORDERED: LEVETIRACETAM 500 MG TABLET PO ONE (14:30)
[2019-03-12] MEDS ORDERED: FENTANYL PF 2,500 MCG in SODIUM CHLORIDE 0.9% 200 ML IV PRN (14:30)
[2019-03-12 14:37] LABS: BASOPHILS # (AUTO) 0.02 x10^3/uL (0-0.1); BASOPHILS % (AUTO) 1 % (0-1); EOSINOPHILS # (AUTO) 0.03 x10^3/uL (0-0.4); EOSINOPHILS % (AUTO) 1 % (1-7); LYMPHOCYTES # (AUTO) 1.09 x10^3/uL (1-3.4); LYMPHOCYTES % (AUTO) 27 % (22-44); MD NO; MEAN CORPUSCULAR HEMOGLOBIN 22.3 pg (27.0-34.8); MEAN CORPUSCULAR HGB CONC 30.3 g/dL (32.4-35.8); MEAN CORPUSCULAR VOLUME 73.6 fL (80-100); MONOCYTES # (AUTO) 0.19 x10^3/uL (0.2-0.8); MONOCYTES % (AUTO) 5 % (2-9); NEUTROPHILS # (AUTO) 2.71 x10^3/uL (1.8-6.8); NEUTROPHILS % (AUTO) 67 % (42-75); PLATELET COUNT 322 x10^3/uL (130-400); RED BLOOD COUNT 4.14 x10^6/uL (3.82-5.3); RED CELL DISTRIBUTION WIDTH 15.9 % (9.6-15.2)
[2019-03-12 14:49] LABS: ALBUMIN 3.2 g/dL (3.4-5.0); ANION GAP 8 mmol/L (5-15); CALCIUM 8.5 mg/dL (8.5-10.1); CHLORIDE 106 mmol/L (98-107); CREATININE 0.59 mg/dL (0.55-1.02)
[2019-03-12 16:03] VITALS: BP 110/72
[2019-03-12 16:14] LABS: MICROSCOPIC NOT IND
[2019-03-12 16:22] LABS: CULTURE INDICATED? NO
--- NOTE | 2019-03-12 16:53 | NUR ---
Patient/Caregiver given discharge instructions and they have confirmed that they understand the instructions. Patient ambulatory with steady gait.
== END 2019-03-12 16:54 | disposition home or self-care (01) ==
LOC: ED 16:15
DX: G40.419 Other generalized epilepsy and epileptic syndromes, intractable, without status epilepticus (principal); K21.9 Gastro-esophageal reflux disease without esophagitis; E11.9 Type 2 diabetes mellitus without complications; Z86.73 Personal history of transient ischemic attack (TIA), and cerebral infarction without residual deficits; Z90.49 Acquired absence of other specified parts of digestive tract
CPT/HCPCS: 36415; 80048; 81003; 82040; 84703; 85025; 93005; 99284

== ENCOUNTER 2019-08-26 20:23 | Emergency (ER) | payer SELFPAY ==
[~2019-08-26] VITALS: Ht 157.5 cm; Wt 60.0 kg
[~2019-08-26 20:23] MED LIST changes: +OMEP40CA42 PO; -OMEP40CA6 PO
--- NOTE | 2019-08-26 21:23 | NUR ---
REPRT TO ILVE STRATTON
[2019-08-26 21:35] LABS: MICROSCOPIC AUTO
--- NOTE | 2019-08-26 21:37 | NUR ---
REPORT RECEIVED FROM VIRAL BLACKMON. ASSUMED CARE OF PT. PT PROVIDED URINE SAMPLE IN TRIAGE AND SAMPLE WAS SENT TO LAB. PT AWARE WE ARE WAITING FOR ERMD EVAL. PT ON CONT BP AND O2 MONITORS. CALL LIGHT WITHIN REACH. WILL CONT TO MONITOR PT.
[2019-08-26] MEDS ORDERED: SODIUM CHLORIDE FLUSH 10ML SYR IVF ONE (22:00)
[2019-08-26] MEDS ORDERED: HYDROmorphone 1 MG/ML, 1ML INJ IVPush PRN (22:00)
[2019-08-26] MEDS ORDERED: ONDANSETRON 2MG/ML, 2ML IVPush ONE (22:00)
[2019-08-26] MEDS ORDERED: HYDROmorphone 1 MG/ML, 1ML VIAL ONE (22:03)
[2019-08-26] MEDS ORDERED: ONDANSETRON 2MG/ML, 2ML ONE (22:03)
--- NOTE | 2019-08-26 22:14 | NUR ---
PT C/O 05/02 RIGHT FLANK PAIN. PT DENIES N/V TO THIS RN. PT AO X 4. SKIN PWD. RESP EVEN AND UNLABORED. NO ACUTE DISTRESS NOTED AT THIS TIME. PT MEDICATED ORDERED FOR PAIN. PT ON CONT BP AND O2 MONITORS. MOTHER AT BEDSIDE. PT AND MOTHER AWARE WE ARE WAITING FOR LAB/IMAGING RESULTS. CALL LIGHT WITHIN REACH. WILL CONT TO MONITOR PT.
[2019-08-26 22:35] LABS: BASOPHILS # (AUTO) 0.05 x10^3/uL (0-0.1); BASOPHILS % (AUTO) 1 % (0-1); EOSINOPHILS # (AUTO) 0.27 x10^3/uL (0-0.4); EOSINOPHILS % (AUTO) 4 % (1-7); LYMPHOCYTES # (AUTO) 2.87 x10^3/uL (1-3.4); LYMPHOCYTES % (AUTO) 39 % (22-44); MD NO; MEAN CORPUSCULAR HEMOGLOBIN 21.7 pg (27.0-34.8); MEAN CORPUSCULAR HGB CONC 30.7 g/dL (32.4-35.8); MEAN CORPUSCULAR VOLUME 70.7 fL (80-100); MEAN PLATELET VOLUME 10.7 fL (7.4-10.4); MONOCYTES # (AUTO) 0.34 x10^3/uL (0.2-0.8); MONOCYTES % (AUTO) 5 % (2-9); NEUTROPHILS # (AUTO) 3.92 x10^3/uL (1.8-6.8); NEUTROPHILS % (AUTO) 53 % (42-75); PLATELET COUNT 267 x10^3/uL (130-400); RED BLOOD COUNT 4.61 x10^6/uL (3.82-5.3); RED CELL DISTRIBUTION WIDTH 16.9 % (9.6-15.2)
[2019-08-26 22:48] LABS: ALBUMIN 3.4 g/dL (3.4-5.0); ANION GAP 5 mmol/L (5-15); CALCIUM 8.6 mg/dL (8.5-10.1); CHLORIDE 105 mmol/L (98-107); CREATININE 0.55 mg/dL (0.55-1.02)
--- NOTE | 2019-08-26 23:20 | NUR ---
PT STANDING AT BEDSIDE TALKING ON PHONE. PT REPORTS PAIN IS RETURNED AFTER "THE ULTRASOUND PERSON PUSHED REALLY HARD ON IT". GISELA CUNNINGHAM NOTIFIED, AWAITING ORDERS. PT AO X 4. SKIN PWD. RESP EVEN AND UNLABORED. NO ACUTE DISTRESS NOTED AT THIS TIME.
[2019-08-26] MEDS ORDERED: KETOROLAC 30 MG/1 ML ONE (23:43)
--- NOTE | 2019-08-26 23:51 | NUR ---
PT REMEDICATED ORDERED FOR PAIN.
[2019-08-27] MEDS ORDERED: KETOROLAC 30 MG/1 ML IVPush ONE
[2019-08-27 00:10] VITALS: BP 106/60
== END 2019-08-27 00:12 | disposition home or self-care (01) ==
LOC: ED 23:15
DX: N30.01 Acute cystitis with hematuria (principal); E10.65 Type 1 diabetes mellitus with hyperglycemia; G40.909 Epilepsy, unspecified, not intractable, without status epilepticus; K21.9 Gastro-esophageal reflux disease without esophagitis
CPT/HCPCS: 36415; 76770; 80048; 81001; 82040; 84703; 85025; 96374; 96375; 99284; J1170; J1885; J2405

== ENCOUNTER 2019-10-05 17:06 | Emergency (ER) | payer SELFPAY ==
[~2019-10-05] VITALS: Ht 157.5 cm; Wt 59.1 kg
[2019-10-05 17:08] VITALS: BP 106/82
[2019-10-05 18:08] LABS: BASOPHILS # (AUTO) 0.02 x10^3/uL (0-0.1); BASOPHILS % (AUTO) 0 % (0-1); EOSINOPHILS # (AUTO) 0.06 x10^3/uL (0-0.4); EOSINOPHILS % (AUTO) 1 % (1-7); LYMPHOCYTES # (AUTO) 1.16 x10^3/uL (1-3.4); LYMPHOCYTES % (AUTO) 15 % (22-44); MD NO; MEAN CORPUSCULAR HEMOGLOBIN 23.1 pg (27.0-34.8); MEAN CORPUSCULAR HGB CONC 31.8 g/dL (32.4-35.8); MEAN CORPUSCULAR VOLUME 72.8 fL (80-100); MEAN PLATELET VOLUME 10.3 fL (7.4-10.4); MONOCYTES # (AUTO) 0.23 x10^3/uL (0.2-0.8); MONOCYTES % (AUTO) 3 % (2-9); NEUTROPHILS # (AUTO) 6.21 x10^3/uL (1.8-6.8); NEUTROPHILS % (AUTO) 81 % (42-75); PLATELET COUNT 288 x10^3/uL (130-400); RED BLOOD COUNT 5.16 x10^6/uL (3.82-5.3); RED CELL DISTRIBUTION WIDTH 19.9 % (9.6-15.2)
[2019-10-05 18:20] LABS: ANION GAP 7 mmol/L (5-15); CALCIUM 9.2 mg/dL (8.5-10.1); CHLORIDE 104 mmol/L (98-107); CREATININE 0.59 mg/dL (0.55-1.02)
[2019-10-05] MEDS ORDERED: METOCLOPRAMIDE 5 MG/ML, 2ML ONE (20:21)
[2019-10-05] MEDS ORDERED: DIPHENHYDRAMINE 50 MG/ML, 1ML ONE (20:21)
[2019-10-05] MEDS ORDERED: KETOROLAC 60 MG/2 ML ONE (20:22)
[2019-10-05] MEDS ORDERED: DIPHENHYDRAMINE 50 MG/ML, 1ML IVPush ONE (20:30)
[2019-10-05] MEDS ORDERED: METOCLOPRAMIDE 5 MG/ML, 2ML IVPush ONE (20:30)
[2019-10-05] MEDS ORDERED: KETOROLAC 30 MG/1 ML IVPush ONE (20:30)
[2019-10-05] MEDS ORDERED: SODIUM CHLORIDE 0.9% 1,000ML IVBOLUS ONE (20:30)
== END 2019-10-05 21:17 | disposition home or self-care (01) ==
LOC: ED 21:10
DX: G44.219 Episodic tension-type headache, not intractable (principal); K21.9 Gastro-esophageal reflux disease without esophagitis; E11.9 Type 2 diabetes mellitus without complications; Z90.49 Acquired absence of other specified parts of digestive tract; Z98.51 Tubal ligation status; Z86.73 Personal history of transient ischemic attack (TIA), and cerebral infarction without residual deficits
CPT/HCPCS: 36415; 70450; 80048; 85025; 96374; 96375; 99284; J1200; J1885; J2765; J7030; 96365

== ENCOUNTER 2019-12-08 04:16 | Emergency (ER) | payer BC ==
[~2019-12-08] VITALS: Ht 167.6 cm; Wt 62.6 kg
--- NOTE | 2019-12-08 04:29 | NUR ---
PATIENT AMBULATORY WITH STEADY GAIT TO RESTROOM
--- NOTE | 2019-12-08 04:45 | NUR ---
THIS IS A 39 YO FEMALE COMING IN FOR RIGHT SIDED FLANK AND GROIN PAIN, STARTING [place] 0130. DENIES PAIN WITH URINATION, HAS HX OF KIDNEY STONES THAT ALL PASS ON OWN, PATIENT STATES "IT FEELS LIKE KIDNEY STONES". DENIES SOB, N/V/D. A&OX4, VSS, NAD, CALL LIGHT IN REACH. UA COLLECTED. SPO2 AND BP MONITORING IN PLACE, WILL CONTINUE TO MONITOR
[2019-12-08] MEDS ORDERED: MORPHINE SULFATE 4 MG/ML, 1ML ONE (04:50)
[2019-12-08] MEDS ORDERED: ONDANSETRON 2MG/ML, 2ML ONE (04:50)
[2019-12-08 04:59] LABS: MICROSCOPIC NOT IND
[2019-12-08] MEDS ORDERED: SODIUM CHLORIDE FLUSH 10ML SYR IVF ONE (05:00)
[2019-12-08] MEDS ORDERED: ONDANSETRON 2MG/ML, 2ML IVPush ONE (05:00)
[2019-12-08] MEDS ORDERED: MORPHINE SULFATE 4 MG/ML, 1ML IVPush PRN (05:00)
[2019-12-08 05:01] LABS: CULTURE INDICATED? NO
--- NOTE | 2019-12-08 05:03 | NUR ---
PATIENT MEDICATED PER EMAR, TOLERATED WELL
[2019-12-08] MEDS ORDERED: INSU100V8 SQ (05:05)
--- NOTE | 2019-12-08 05:15 | NUR ---
PATIENT IN ULTRASOUND
[2019-12-08 05:17] LABS: BASOPHILS # (AUTO) 0.02 x10^3/uL (0-0.1); BASOPHILS % (AUTO) 0 % (0-1); EOSINOPHILS % (AUTO) 3 % (1-7); LYMPHOCYTES # (AUTO) 2.23 x10^3/uL (1-3.4); LYMPHOCYTES % (AUTO) 35 % (22-44); MD NO; MEAN CORPUSCULAR HEMOGLOBIN 23.2 pg (27.0-34.8); MEAN CORPUSCULAR HGB CONC 31.4 g/dL (32.4-35.8); MEAN CORPUSCULAR VOLUME 73.7 fL (80-100); MEAN PLATELET VOLUME 10.5 fL (7.4-10.4); MONOCYTES # (AUTO) 0.31 x10^3/uL (0.2-0.8); MONOCYTES % (AUTO) 5 % (2-9); NEUTROPHILS # (AUTO) 3.61 x10^3/uL (1.8-6.8); NEUTROPHILS % (AUTO) 57 % (42-75); PLATELET COUNT 280 x10^3/uL (130-400); RED BLOOD COUNT 4.06 x10^6/uL (3.82-5.3); RED CELL DISTRIBUTION WIDTH 15.9 % (9.6-15.2)
[2019-12-08 05:19] LABS: ALBUMIN 3.3 g/dL (3.4-5.0); ANION GAP 7 mmol/L (5-15); CALCIUM 8.1 mg/dL (8.5-10.1); CHLORIDE 106 mmol/L (98-107)
[2019-12-08 05:25] LABS: ALANINE AMINOTRANSFERASE 17 U/L (12-78); ALKALINE PHOSPHATASE 98 U/L (45-117); BILIRUBIN,TOTAL 0.2 mg/dL (0.2-1.0); CREATININE 0.74 mg/dL (0.55-1.02); TOTAL PROTEIN 7.3 g/dL (6.4-8.2)
--- NOTE | 2019-12-08 05:46 | NUR ---
PATIENT TO XRAY
[2019-12-08 05:57] VITALS: BP 107/66
--- NOTE | 2019-12-08 06:57 | NUR ---
Patient given discharge instructions and they have confirmed that they understand the instructions. Patient ambulatory with steady gait.
== END 2019-12-08 07:00 | disposition home or self-care (01) ==
LOC: ED 06:41
DX: S29.012A Strain of muscle and tendon of back wall of thorax, initial encounter (principal); K21.9 Gastro-esophageal reflux disease without esophagitis; E11.65 Type 2 diabetes mellitus with hyperglycemia; G40.909 Epilepsy, unspecified, not intractable, without status epilepticus; Z90.49 Acquired absence of other specified parts of digestive tract; Z86.73 Personal history of transient ischemic attack (TIA), and cerebral infarction without residual deficits; X58.XXXA Exposure to other specified factors, initial encounter; Y93.89 Activity, other specified; Y92.89 Other specified places as the place of occurrence of the external cause; Y99.8 Other external cause status
CPT/HCPCS: 36415; 74018; 76770; 80053; 81003; 84703; 85025; 96374; 96375; 99285; J2270; J2405

== ENCOUNTER 2019-12-09 12:10 | Emergency (ER) | payer BC ==
[~2019-12-09] VITALS: Ht 157.5 cm; Wt 60.1 kg
--- NOTE | 2019-12-09 13:02 | NUR ---
PT CAME IN CO OF RIGHT FLANK PAIN AND LOWER ABD PAIN. WAS SEEN YESTERDAY AND TREATED FOR KIDNEY STONES. DOESNT FEEL ANY BETTER YET. UA HAS BEEN .BLANKET PROVIDED.
[2019-12-09 13:11] LABS: MICROSCOPIC NOT IND
[2019-12-09 13:14] LABS: BASOPHILS # (AUTO) 0.07 x10^3/uL (0-0.1); BASOPHILS % (AUTO) 1 % (0-1); EOSINOPHILS # (AUTO) 0.14 x10^3/uL (0-0.4); EOSINOPHILS % (AUTO) 1 % (1-7); LYMPHOCYTES # (AUTO) 2.19 x10^3/uL (1-3.4); LYMPHOCYTES % (AUTO) 20 % (22-44); MD NO; MEAN CORPUSCULAR HGB CONC 31.3 g/dL (32.4-35.8); MEAN CORPUSCULAR VOLUME 73.5 fL (80-100); MEAN PLATELET VOLUME 10.6 fL (7.4-10.4); MONOCYTES # (AUTO) 0.49 x10^3/uL (0.2-0.8); MONOCYTES % (AUTO) 5 % (2-9); NEUTROPHILS # (AUTO) 7.85 x10^3/uL (1.8-6.8); NEUTROPHILS % (AUTO) 73 % (42-75); PLATELET COUNT 357 x10^3/uL (130-400); RED BLOOD COUNT 4.98 x10^6/uL (3.82-5.3); RED CELL DISTRIBUTION WIDTH 16.2 % (9.6-15.2)
[2019-12-09 13:19] LABS: CULTURE INDICATED? NO
[2019-12-09 13:21] LABS: ALANINE AMINOTRANSFERASE 18 U/L (12-78); ALBUMIN 3.9 g/dL (3.4-5.0); ANION GAP 6 mmol/L (5-15); CHLORIDE 103 mmol/L (98-107); CREATININE 0.73 mg/dL (0.55-1.02)
[2019-12-09 13:23] LABS: ALKALINE PHOSPHATASE 122 U/L (45-117); BILIRUBIN,TOTAL 0.3 mg/dL (0.2-1.0); TOTAL PROTEIN 8.5 g/dL (6.4-8.2)
[2019-12-09] MEDS ORDERED: OXYcodone/APAP 5/325MG TABLET PO ONE (13:30)
[2019-12-09 13:55] VITALS: BP 109/64
[2019-12-09] MEDS ORDERED: OXYcodone/APAP 5/325MG TABLET ONE (13:56)
--- NOTE | 2019-12-09 13:58 | NUR ---
PT RESTING IN [facility]. NAD. VSS. MEDICATED PER MAR
== END 2019-12-09 14:57 ==
LOC: ED 13:28
DX: R10.9 Unspecified abdominal pain (principal); E11.65 Type 2 diabetes mellitus with hyperglycemia; Z87.891 Personal history of nicotine dependence
CPT/HCPCS: 36415; 74176; 80053; 81003; 85025; 99284

== ENCOUNTER 2019-12-17 12:59 | Emergency (ER) | payer BC ==
[~2019-12-17] VITALS: Ht 157.5 cm; Wt 64.5 kg
[2019-12-17] MEDS ORDERED: LEVE500T8 PO (13:18)
--- NOTE | 2019-12-17 13:42 | NUR ---
PT TO ROOM 40 PER PEDIS. PT HERE DUE TO EXPOSURE TO PERSON WITH POSITIVIE COVID 19. PT HAS BEEN FEELING SOB, FEVERISH AND COUGH X2 DAYS. PT WENT TO URGENT CARE YESTERDAY AND WAS SWABBED FOR COVID, BUT IS AWAITING RESULTS. TODAY FELT MORE SOB, SO CAME TO BE CHECKED. PT CONCERNED THAT SHE IS DIABETIC AND HAS BEEN HAVING PROBLEMS KEEPING HER BLOOD GLUCOSE LEVELS LESS THAN 350. PA IN TO SEE PATIENT, WILL PLACE ORDERS. PT PUT INTO GOWN, PLACED ON MONITOR, GIVEN CALL LIGHT WITH INSTRUCTIONS, OFFERED BLANKET AND INSTRUCTED ON KEEPING MASK IN PLACE. PT VERBALIZES UNDERSTANDING OF NEEDING TO STAY IN ROOM WITH MASK ON DUE TO RESP ISOLATION.
--- NOTE | 2019-12-17 14:01 | NUR ---
FINGERSTICK SHOWS GLUCOSE OF 326. NOTIFIED. PT TOOK 10 REGULAR INSULIN 1 HOUR AGO.
[2019-12-17 14:54] VITALS: BP 121/77
== END 2019-12-17 14:56 | disposition home or self-care (01) ==
LOC: ED 13:34
DX: B34.9 Viral infection, unspecified (principal); I10 Essential (primary) hypertension; E11.65 Type 2 diabetes mellitus with hyperglycemia; K21.9 Gastro-esophageal reflux disease without esophagitis; G40.909 Epilepsy, unspecified, not intractable, without status epilepticus; Z90.49 Acquired absence of other specified parts of digestive tract; Z86.73 Personal history of transient ischemic attack (TIA), and cerebral infarction without residual deficits; Z87.891 Personal history of nicotine dependence
CPT/HCPCS: 71045; 82962; 99283

== ENCOUNTER 2020-08-21 23:05 | Emergency (ER) | payer OTHER ==
[~2020-08-21] VITALS: Ht 154.9 cm; Wt 62.9 kg
[~2020-08-21 23:05] MED LIST changes: +LEVE500T8 PO
[2020-08-22 00:49] LABS: BASOPHILS % (AUTO) 1 % (0-1); EOSINOPHILS % (AUTO) 3 % (1-7); LYMPHOCYTES % (AUTO) 44 % (22-44); MEAN CORPUSCULAR HEMOGLOBIN 21.4 pg (27.0-34.8); MEAN CORPUSCULAR HGB CONC 31.7 g/dL (32.4-35.8); MEAN PLATELET VOLUME 9.8 fL (7.4-10.4); MONOCYTES % (AUTO) 5 % (2-9); NEUTROPHILS % (AUTO) 47 % (42-75); PLATELET COUNT 303 x10^3/uL (130-400); RED BLOOD COUNT 5.02 x10^6/uL (3.82-5.3); RED CELL DISTRIBUTION WIDTH 16.5 % (9.6-15.2)
[2020-08-22 00:50] LABS: MD NO
[2020-08-22 00:57] LABS: ALANINE AMINOTRANSFERASE 18 U/L (12-78); ALBUMIN 3.7 g/dL (3.4-5.0); ANION GAP 1 mmol/L (5-15); CALCIUM 9.2 mg/dL (8.5-10.1); CHLORIDE 102 mmol/L (98-107)
[2020-08-22 01:00] LABS: ALKALINE PHOSPHATASE 98 U/L (45-117); BILIRUBIN,TOTAL 0.2 mg/dL (0.2-1.0); TOTAL PROTEIN 8.3 g/dL (6.4-8.2)
--- NOTE | 2020-08-22 01:13 | NUR ---
pt to room from lobby
--- NOTE | 2020-08-22 01:28 | NUR ---
pt in room, lying comfortably, no pain noted at this time.
[2020-08-22] MEDS ORDERED: MAALOX/HYOSCYAMINE/LIDOCAINE 45 ML BTL ONE (01:42)
[2020-08-22 01:59] LABS: TROPONIN I < 0.015 ng/mL (0.000-0.045)
[2020-08-22] MEDS ORDERED: MAALOX/HYOSCYAMINE/LIDOCAINE 45 ML BTL PO ONE (02:00)
[2020-08-22 02:02] LABS: HCG UR SG 1.041 (1.003-1.030); MICROSCOPIC AUTO
[2020-08-22 03:44] VITALS: BP 104/51
--- NOTE | 2020-08-22 03:44 | NUR ---
pt resting comfortably, on cr monitor. no distress.
== END 2020-08-22 03:59 | disposition home or self-care (01) ==
LOC: ED 08-22 00:08
DX: R10.13 Epigastric pain (principal); Z20.828 Contact with and (suspected) exposure to other viral communicable diseases; R19.7 Diarrhea, unspecified; B34.9 Viral infection, unspecified; R94.31 Abnormal electrocardiogram [ECG] [EKG]; F17.210 Nicotine dependence, cigarettes, uncomplicated; K21.9 Gastro-esophageal reflux disease without esophagitis
CPT/HCPCS: 36415; 71045; 80053; 81001; 81025; 83690; 84484; 85025; 87635; 93005; 99285; 99406

== ENCOUNTER 2020-10-06 10:03 | Inpatient (IN) | payer OTHER ==
[~2020-10-06] VITALS: Ht 154.9 cm; Wt 60.5 kg
[2020-10-06] MEDS ORDERED: SODIUM CHLORIDE 0.9% 1,000 ML IV ONE (10:30)
[2020-10-06] MEDS ORDERED: ONDANSETRON 2MG/ML, 2ML IVPush ONE (10:30)
[2020-10-06] MEDS ORDERED: SODIUM CHLORIDE FLUSH 10ML SYR IVF ONE (10:30)
[2020-10-06] MEDS ORDERED: ONDANSETRON 2MG/ML, 2ML ONE (10:32)
[2020-10-06 10:42] LABS: BASOPHILS % (AUTO) 1 % (0-1); EOSINOPHILS % (AUTO) 3 % (1-7); LYMPHOCYTES % (AUTO) 26 % (22-44); MEAN CORPUSCULAR HEMOGLOBIN 20.8 pg (27.0-34.8); MEAN CORPUSCULAR HGB CONC 30.8 g/dL (32.4-35.8); MEAN PLATELET VOLUME 9.7 fL (7.4-10.4); MONOCYTES % (AUTO) 6 % (2-9); NEUTROPHILS % (AUTO) 65 % (42-75); PLATELET COUNT 278 x10^3/uL (130-400); RED BLOOD COUNT 5.16 x10^6/uL (3.82-5.3); RED CELL DISTRIBUTION WIDTH 16.9 % (9.6-15.2)
--- NOTE | 2020-10-06 10:45 | NUR ---
PT WITH R FLANK PAIN N/V X1WEEK.
[2020-10-06] MEDS ORDERED: MORPHINE SULFATE 4 MG/ML, 1ML ONE ×2 (10:46→12:55)
[2020-10-06 10:47] LABS: MICROSCOPIC INDICATED
[2020-10-06] MEDS: MORPHINE SULFATE 4 MG/ML, 1ML IVPush PRN ×2 (10:48→12:59)
[2020-10-06 10:50] LABS: ALANINE AMINOTRANSFERASE 20 U/L (12-78); ANION GAP 6 mmol/L (5-15); CALCIUM 8.9 mg/dL (8.5-10.1); CHLORIDE 105 mmol/L (98-107); CREATININE 0.66 mg/dL (0.55-1.02); MD NO
[2020-10-06 10:54] LABS: ALKALINE PHOSPHATASE 86 U/L (45-117); BILIRUBIN,TOTAL 0.5 mg/dL (0.2-1.0); TOTAL PROTEIN 8.3 g/dL (6.4-8.2)
[2020-10-06] MEDS ORDERED: CEFTRIAXONE PMX 2GM/50ML 50 ML IVPB SCH (11:30)
[2020-10-06] MEDS ORDERED: CEFTRIAXONE PMX 2GM/50ML 50 ML ONE ×2 (11:34→11:36)
--- NOTE | 2020-10-06 11:56 | NUR ---
PT TO CT AT THIS TIME, WILL MEDICATE ONCE RETURNS TO RM. PER ERMD OK TO HANG ABX, NO BC NEEDED
--- NOTE | 2020-10-06 13:03 | NUR ---
BREAK RN: PATIENT MEDICATED PER eMAR, RESTING IN GURNEY, NADN, VSS, CALL LIGHT WITHIN REACH, NO FURTHER NEEDS AT THIS TIME.
[2020-10-06] MEDS ORDERED: SODIUM CHLORIDE 0.9%, 500ML IVBOLUS ONE (13:30)
--- NOTE | 2020-10-06 13:30 | NUR ---
REPORT TO PARADISE STRATTON
--- NOTE | 2020-10-06 13:34 | NUR ---
REPORT TO PRE-OP RN
[2020-10-06] MEDS ORDERED: CHLORHEXIDINE 15 ML UDC ONE (13:36)
[2020-10-06] MEDS ORDERED: EPHEDRINE 50 MG/ML, 1ML IVPush PRN (14:00)
[2020-10-06] MEDS ORDERED: BUTALB/APAP/CAFFEINE 50MG/325MG/40MG PO PRN ×2 (14:00)
[2020-10-06] MEDS ORDERED: METHOCARBAMOL 1,000 MG in DEXTROSE 5% 100 ML IV PRN (14:00)
[2020-10-06] MEDS ORDERED: ONDANSETRON 2MG/ML, 2ML IVPush PRN (14:00)
[2020-10-06] MEDS ORDERED: DIAZEPAM 5 MG/ML, 2ML IVPush PRN (14:00)
[2020-10-06] MEDS ORDERED: hydrALAzine 20 MG/ML, 1ML IV PRN (14:00)
[2020-10-06] MEDS ORDERED: KETOROLAC 30 MG/1 ML IVPush PRN (14:00)
[2020-10-06] MEDS ORDERED: EPHEDRINE 50 MG/ML, 1ML IM PRN (14:00)
[2020-10-06] MEDS ORDERED: ALBUTEROL SULFATE 2.5 MG/3 ML NPPB PRN (14:00)
[2020-10-06] MEDS ORDERED: DIPHENHYDRAMINE 50 MG/ML, 1ML IVPush PRN (14:00)
[2020-10-06] MEDS ORDERED: ACETAMINOPHEN 325 MG TABLET PO PRN (14:00)
[2020-10-06] MEDS ORDERED: MIDAZOLAM 1 MG/ML, 2ML IV PRN (14:00)
[2020-10-06] MEDS ORDERED: HYDROcodone/APAP 7.5-325MG/15ML UDC PO PRN (14:00)
[2020-10-06] MEDS ORDERED: LORazepam 2 MG/ML, 1ML IVPush PRN (14:00)
[2020-10-06] MEDS ORDERED: hydrALAzine 20 MG/ML, 1ML IVPush PRN (14:00)
[2020-10-06] MEDS ORDERED: BACLOFEN 10 MG TABLET PO PRN (14:00)
[2020-10-06] MEDS ORDERED: MEPERIDINE/PF 25MG/0.5ML IVPush PRN (14:00)
[2020-10-06] MEDS ORDERED: HYDROmorphone 1 MG/ML, 1ML INJ IVPush PRN (14:00)
[2020-10-06] MEDS ORDERED: CEFTRIAXONE PMX 1GM/50ML 50 ML IV SCH (14:00)
[2020-10-06] MEDS ORDERED: LABETALOL 5MG/ML, 20ML IV PRN (14:00)
[2020-10-06] MEDS ORDERED: FENTANYL PF 100 MCG/2ML IV PRN (14:00)
[2020-10-06] MEDS ORDERED: ENALAPRILAT 1.25 MG/ML, 2ML IVPush PRN (14:00)
[2020-10-06] MEDS ORDERED: OXYcodone 5 MG/5 ML ORAL.SOL UDC PO PRN (14:00)
[2020-10-06] MEDS ORDERED: HALOPERIDOL 5 MG/ML IV PRN (14:00)
[2020-10-06] MEDS ORDERED: ROCURONIUM 10 MG/ML,10ML ONE (14:08)
[2020-10-06] MEDS ORDERED: FENTANYL PF 100 MCG/2ML ONE (14:08)
[2020-10-06] MEDS ORDERED: GLYCOPYRROLATE 0.2MG/1ML, 5ML ONE (14:08)
[2020-10-06] MEDS ORDERED: METOCLOPRAMIDE 5 MG/ML, 2ML ONE (14:08)
[2020-10-06] MEDS ORDERED: DEXAMETHASONE 4 MG/ML, 1ML ONE (14:08)
[2020-10-06] MEDS ORDERED: PROPOFOL 10 MG/ML, 20ML ONE (14:08)
[2020-10-06] MEDS ORDERED: CEFTRIAXONE 1,000 MG ONE (14:20)
[2020-10-06] MEDS ORDERED: MEPERIDINE/PF 25MG/ML,1ML ONE (14:59)
[2020-10-06] MEDS ORDERED: OMNIPAQUE 350 MG/ML, 50 ML BOTTLE ONE (15:00)
[2020-10-06] MEDS: SODIUM CHLORIDE 0.9% 1,000 ML IV SCH ×2 (15:30→22:42)
[2020-10-06] MEDS ORDERED: LACTATED RINGERS 1,000 ML IV ONE (17:00)
[2020-10-06] MEDS: IBUPROFEN 600 MG TABLET PO PRN (17:05)
[2020-10-06] MEDS: ACETAMINOPHEN 325 MG TABLET PO PRN (17:05)
[2020-10-06 20:06] VITALS: BP 95/59
[2020-10-06] MEDS: LEVETIRACETAM 500 MG TABLET PO SCH (22:41)
[2020-10-06] MEDS: MELATONIN 5 MG TABLET PO SCH (22:41)
[2020-10-06] MEDS ORDERED: DEXTROSE 50%, 50ML SYRINGE IVPush PRN (23:30)
[2020-10-06] MEDS ORDERED: GLUCAGON 1 MG IM PRN (23:30)
[2020-10-06] MEDS ORDERED: DEXTROSE 4 GM TAB.CHEW PO PRN (23:30)
[2020-10-07] MEDS ORDERED: CEFTRIAXONE PMX 1GM/50ML 50 ML IV SCH
[2020-10-07 00:07] VITALS: BP 95/52
[2020-10-07] MEDS: INSULIN LISPRO 100 UNITS/ML, PEN SQ-INSULIN SCH ×5 (00:28→21:33)
[2020-10-07] MEDS: INSULIN GLARGINE 100 UNITS/ML, PEN SQ-INSULIN SCH ×2 (00:29→21:32)
[2020-10-07] MEDS: SODIUM CHLORIDE FLUSH 10ML SYR IVF SCH ×3 (00:29→21:11)
[2020-10-07] MEDS: IBUPROFEN 600 MG TABLET PO PRN ×3 (03:03→21:11)
[2020-10-07 04:32] VITALS: BP 95/55
[2020-10-07] MEDS: ACETAMINOPHEN 325 MG TABLET PO PRN ×2 (05:14→21:11)
[2020-10-07 06:01] LABS: MEAN CORPUSCULAR HEMOGLOBIN 20.8 pg (27.0-34.8); MEAN CORPUSCULAR HGB CONC 30.9 g/dL (32.4-35.8); MEAN PLATELET VOLUME 10.3 fL (7.4-10.4); PLATELET COUNT 141 x10^3/uL (130-400); RED BLOOD COUNT 3.86 x10^6/uL (3.82-5.3); RED CELL DISTRIBUTION WIDTH 16.4 % (9.6-15.2)
[2020-10-07 06:10] LABS: MD YES
[2020-10-07 06:16] LABS: ANION GAP 8 mmol/L (5-15); CHLORIDE 108 mmol/L (98-107)
[2020-10-07 06:18] LABS: CREATININE 0.96 mg/dL (0.55-1.02)
[2020-10-07 06:30] LABS: BAND#(MANUAL) 6.12 x10^3/uL; BANDS%(MANUAL) 19 % (0-7); LYMPH#(MANUAL) 0.64 x10^3/uL (1-3.4); LYMPHS% (MANUAL) 2 % (22-44); METAMYELOCYTES# (MANUAL) 0.64 x10^3/uL (0-0); METAMYELOCYTES% (MANUAL) 2 % (0-1); MONOS#(MANUAL) 0.32 x10^3/uL (0.3-2.7); MONOS% (MANUAL) 1 % (2-9); SEG#(MANUAL) 24.47 x10^3/uL (1.8-6.8); SEGS% (MANUAL) 76 % (42-75)
[2020-10-07 06:32] LABS: ANISOCYTOSIS 1+; MICROCYTOSIS 2+; OVALOCYTES 1+
[2020-10-07 06:33] LABS: <PLATELET ESTIMATE> ADEQUATE; <PLT MORPHOLOGY> NORMAL PLT MORPH
[2020-10-07] MEDS: SODIUM CHLORIDE 0.9% 1,000 ML IV SCH ×2 (07:16→15:30)
[2020-10-07 07:49] VITALS: BP 85/55
[2020-10-07] MEDS: LEVETIRACETAM 500 MG TABLET PO SCH ×2 (08:24→21:04)
[2020-10-07] MEDS: SENNA/DOCUSATE TABLET PO SCH (08:25)
[2020-10-07] MEDS ORDERED: MAGNESIUM SULFATE PMX 2GM/50ML 50 ML IV ONE (09:00)
[2020-10-07 11:26] LABS: BASOPHILS % (AUTO) 0 % (0-1); EOSINOPHILS % (AUTO) 0 % (1-7); LYMPHOCYTES % (AUTO) 2 % (22-44); MEAN CORPUSCULAR HEMOGLOBIN 20.5 pg (27.0-34.8); MEAN CORPUSCULAR HGB CONC 30.5 g/dL (32.4-35.8); MEAN PLATELET VOLUME 10.7 fL (7.4-10.4); MONOCYTES % (AUTO) 2 % (2-9); PLATELET COUNT 143 x10^3/uL (130-400); RED BLOOD COUNT 3.85 x10^6/uL (3.82-5.3); RED CELL DISTRIBUTION WIDTH 16.7 % (9.6-15.2)
[2020-10-07 12:31] LABS: MD YES
[2020-10-07 12:33] LABS: BAND#(MANUAL) 4.85 x10^3/uL; BANDS%(MANUAL) 16 % (0-7); LYMPH#(MANUAL) 0.61 x10^3/uL (1-3.4); LYMPHS% (MANUAL) 2 % (22-44)
[2020-10-07 12:39] LABS: MONOS% (MANUAL) 1 % (2-9); SEGS% (MANUAL) 81 % (42-75)
[2020-10-07 12:40] LABS: <PLATELET ESTIMATE> ADEQUATE; <PLT MORPHOLOGY> NORMAL PLT MORPH; ANISOCYTOSIS 1+; HYPOCHROMIA 2+; MICROCYTOSIS 2+; POLYCHROMASIA 1+
[2020-10-07 12:41] LABS: OVALOCYTES 1+
[2020-10-07 13:42] VITALS: BP 97/65
[2020-10-07] MEDS: CEFTRIAXONE PMX 2GM/50ML 50 ML IVPB SCH (14:08)
[2020-10-07] MEDS ORDERED: NICOTINE 14MG/24 HR PATCH.TD24 TD ONE (15:00)
[2020-10-07 19:47] VITALS: BP 93/60
[2020-10-07] MEDS: MELATONIN 5 MG TABLET PO SCH (21:04)
[2020-10-08] MEDS: SODIUM CHLORIDE 0.9% 1,000 ML IV SCH ×3 (00:37→15:30)
[2020-10-08 02:27] VITALS: BP 88/56
[2020-10-08 06:06] LABS: BASOPHILS % (AUTO) 0 % (0-1); EOSINOPHILS % (AUTO) 1 % (1-7); LYMPHOCYTES % (AUTO) 6 % (22-44); MEAN CORPUSCULAR HEMOGLOBIN 20.9 pg (27.0-34.8); MEAN CORPUSCULAR HGB CONC 31.4 g/dL (32.4-35.8); MEAN PLATELET VOLUME 11.2 fL (7.4-10.4); MONOCYTES % (AUTO) 3 % (2-9); NEUTROPHILS % (AUTO) 90 % (42-75); PLATELET COUNT 124 x10^3/uL (130-400); RED BLOOD COUNT 3.71 x10^6/uL (3.82-5.3); RED CELL DISTRIBUTION WIDTH 16.6 % (9.6-15.2)
[2020-10-08 06:07] LABS: MD NO
[2020-10-08 06:25] LABS: CHLORIDE 113 mmol/L (98-107)
[2020-10-08 06:39] LABS: ALBUMIN 2.3 g/dL (3.4-5.0); ANION GAP 7 mmol/L (5-15); CALCIUM 7.5 mg/dL (8.5-10.1); CREATININE 0.58 mg/dL (0.55-1.02)
[2020-10-08 07:30] VITALS: BP 101/68
[2020-10-08] MEDS: SENNA/DOCUSATE TABLET PO SCH (08:56)
[2020-10-08] MEDS: ACETAMINOPHEN 325 MG TABLET PO PRN ×2 (08:56→17:44)
[2020-10-08] MEDS: LEVETIRACETAM 500 MG TABLET PO SCH (08:56)
[2020-10-08] MEDS: IBUPROFEN 600 MG TABLET PO PRN ×2 (08:56→17:44)
[2020-10-08] MEDS: SODIUM CHLORIDE FLUSH 10ML SYR IVF SCH (08:57)
[2020-10-08] MEDS: INSULIN LISPRO 100 UNITS/ML, PEN SQ-INSULIN SCH ×3 (08:58→16:46)
[2020-10-08] MEDS ORDERED: POTASSIUM PHOSPHATE 44 MEQ in SODIUM CHLORIDE 0.9% 500 ML IV ONE (09:30)
[2020-10-08] MEDS ORDERED: CEFD300C37 PO (10:18)
[2020-10-08] MEDS: CEFTRIAXONE PMX 2GM/50ML 50 ML IVPB SCH (14:43)
[2020-10-08 15:23] VITALS: BP 104/72
[2020-10-08 19:44] VITALS: BP 109/74
== END 2020-10-08 20:00 | disposition home or self-care (01) | DRG 660 ==
LOC: OR 13:36 → EDIP 13:37 → 4NE 16:30
PROVIDERS: ADMIT Family Medicine; ATTEND Family Medicine
PROC: 0T768DZ Dilation of Right Ureter with Intraluminal Device, Via Natural or Artificial Opening Endoscopic (ICD-10-PCS; principal; 2020-10-06 13:15)
DX: N13.6 Pyonephrosis (principal); E87.1 Hypo-osmolality and hyponatremia; G43.909 Migraine, unspecified, not intractable, without status migrainosus; N12 Tubulo-interstitial nephritis, not specified as acute or chronic; D50.9 Iron deficiency anemia, unspecified; D63.8 Anemia in other chronic diseases classified elsewhere; E10.9 Type 1 diabetes mellitus without complications; F12.10 Cannabis abuse, uncomplicated; Z20.822 Contact with and (suspected) exposure to COVID-19; F17.210 Nicotine dependence, cigarettes, uncomplicated; G40.909 Epilepsy, unspecified, not intractable, without status epilepticus; Z79.4 Long term (current) use of insulin; Z86.73 Personal history of transient ischemic attack (TIA), and cerebral infarction without residual deficits; Z87.442 Personal history of urinary calculi; Z90.49 Acquired absence of other specified parts of digestive tract; Z98.891 History of uterine scar from previous surgery; Z79.899 Other long term (current) drug therapy
CPT/HCPCS: 36415; 74176; 74420; 80048; 80053; 80069; 81001; 82962; 83735; 84703; 85025; 87077; 87086; 87186; 87635; G0378; J0696; J1100; J2175; J2405; J2704; J3010; Q9967; C1769; C2617; J1815; J2270; J2765; J3475; J7030; J7040; J7120

== ENCOUNTER 2020-10-09 07:48 | Emergency (ER) | payer OTHER ==
[~2020-10-09 07:48] MED LIST changes: +CEFD300C37 PO; +HYDR-1067 PO; -HYDR-3240 PO
--- NOTE | 2020-10-09 08:22 | NUR ---
EIGHT SECTION BLOWER: PT TO ROOM FROM LOBBY VIA W/C
[2020-10-09] MEDS ORDERED: ONDANSETRON 2MG/ML, 2ML ONE (08:57)
[2020-10-09] MEDS ORDERED: MORPHINE SULFATE 4 MG/ML, 1ML ONE ×2 (08:58→11:11)
[2020-10-09] MEDS ORDERED: SODIUM CHLORIDE FLUSH 10ML SYR IVF ONE (09:00)
[2020-10-09] MEDS ORDERED: ONDANSETRON 2MG/ML, 2ML IVPush ONE (09:00)
[2020-10-09] MEDS: MORPHINE SULFATE 4 MG/ML, 1ML IVPush PRN ×2 (09:07→11:13)
--- NOTE | 2020-10-09 09:19 | NUR ---
PT HAD URETAL STENTS PLACED YESTERDAY. CO PAIN IN BACK AND LOWER ABDOMINAL PAIN. PT DENIES CP OR SOB
[2020-10-09 09:28] LABS: MICROSCOPIC AUTO
[2020-10-09 09:30] LABS: ALANINE AMINOTRANSFERASE 306 U/L (12-78); ANION GAP 8 mmol/L (5-15); CALCIUM 9.1 mg/dL (8.5-10.1); CHLORIDE 104 mmol/L (98-107)
[2020-10-09] MEDS ORDERED: PLEASE ENTER HEIGHT AND WEIGHT MC SCH (09:30)
[2020-10-09 09:31] LABS: BASOPHILS % (AUTO) 1 % (0-1); EOSINOPHILS % (AUTO) 1 % (1-7); LYMPHOCYTES % (AUTO) 11 % (22-44); MEAN CORPUSCULAR HEMOGLOBIN 20.6 pg (27.0-34.8); MEAN CORPUSCULAR HGB CONC 31.2 g/dL (32.4-35.8); MEAN PLATELET VOLUME 10.6 fL (7.4-10.4); MONOCYTES % (AUTO) 3 % (2-9); NEUTROPHILS % (AUTO) 84 % (42-75); PLATELET COUNT 187 x10^3/uL (130-400); RED BLOOD COUNT 4.61 x10^6/uL (3.82-5.3)
[2020-10-09 09:32] LABS: MD NO
--- NOTE | 2020-10-09 09:32 | NUR ---
MEDICATED PER ORDERS. BACK FROM XR
[2020-10-09 09:34] LABS: ALKALINE PHOSPHATASE 410 U/L (45-117); BILIRUBIN,TOTAL 0.6 mg/dL (0.2-1.0); TOTAL PROTEIN 7.7 g/dL (6.4-8.2); TROPONIN I < 0.015 ng/mL (0.000-0.045)
--- NOTE | 2020-10-09 10:04 | NUR ---
PT STATES PAIN IS BETTER AFTER MEDICATION
[2020-10-09] MEDS ORDERED: OMNIPAQUE 350 MG/ML, 100ML BOTTLE ONE (11:00)
--- NOTE | 2020-10-09 11:51 | NUR ---
MEDICATED FOR PAIN. PT STATES URINE IS BLOOD TINGED
--- NOTE | 2020-10-09 11:54 | NUR ---
dr shelton spoke with dr may
--- NOTE | 2020-10-09 12:21 | NUR ---
Patient/Caregiver given discharge instructions and they have confirmed that they understand the instructions. Patient ambulatory with steady gait.
[2020-10-09 12:23] VITALS: BP 115/56
== END 2020-10-09 12:24 | disposition home or self-care (01) ==
LOC: ED 09:08
DX: R10.84 Generalized abdominal pain (principal); R06.00 Dyspnea, unspecified; G89.18 Other acute postprocedural pain; R07.89 Other chest pain; R94.5 Abnormal results of liver function studies; R94.31 Abnormal electrocardiogram [ECG] [EKG]; I10 Essential (primary) hypertension; E11.9 Type 2 diabetes mellitus without complications; K21.9 Gastro-esophageal reflux disease without esophagitis
CPT/HCPCS: 36415; 71275; 74022; 76770; 80053; 81001; 83690; 84484; 85025; 87086; 93005; 96374; 96375; 96376; 99285; J2270; J2405; Q9967

== ENCOUNTER 2020-10-12 22:32 | Emergency (ER) | payer OTHER ==
[~2020-10-12] VITALS: Ht 154.9 cm; Wt 62.7 kg
[2020-10-12] MEDS ORDERED: KETOROLAC 30 MG/1 ML IVPush ONE (23:00)
[2020-10-12] MEDS ORDERED: ONDANSETRON 2MG/ML, 2ML IVPush ONE (23:00)
[2020-10-12] MEDS ORDERED: SODIUM CHLORIDE 0.9% 1,000ML IV ONE (23:00)
[2020-10-12] MEDS ORDERED: MORPHINE SULFATE 4 MG/ML, 1ML IVPush PRN (23:00)
[2020-10-12] MEDS ORDERED: KETOROLAC 30 MG/1 ML ONE (23:04)
[2020-10-12] MEDS ORDERED: ONDANSETRON 2MG/ML, 2ML ONE (23:04)
[2020-10-12] MEDS ORDERED: MORPHINE SULFATE 4 MG/ML, 1ML ONE (23:05)
[2020-10-12 23:16] LABS: BASOPHILS % (AUTO) 1 % (0-1); EOSINOPHILS % (AUTO) 3 % (1-7); LYMPHOCYTES % (AUTO) 40 % (22-44); MEAN CORPUSCULAR HEMOGLOBIN 21.1 pg (27.0-34.8); MEAN CORPUSCULAR HGB CONC 31.6 g/dL (32.4-35.8); MEAN PLATELET VOLUME 9.1 fL (7.4-10.4); MONOCYTES % (AUTO) 6 % (2-9); NEUTROPHILS % (AUTO) 52 % (42-75); PLATELET COUNT 288 x10^3/uL (130-400); RED BLOOD COUNT 4.69 x10^6/uL (3.82-5.3); RED CELL DISTRIBUTION WIDTH 16.9 % (9.6-15.2)
[2020-10-12 23:17] LABS: MD NO
[2020-10-12 23:28] LABS: ALANINE AMINOTRANSFERASE 107 U/L (12-78); ALBUMIN 3.3 g/dL (3.4-5.0); ANION GAP 5 mmol/L (5-15); CALCIUM 8.6 mg/dL (8.5-10.1); CHLORIDE 105 mmol/L (98-107); CREATININE 0.53 mg/dL (0.55-1.02)
[2020-10-12 23:30] LABS: ALKALINE PHOSPHATASE 358 U/L (45-117); BILIRUBIN,TOTAL 0.3 mg/dL (0.2-1.0); TOTAL PROTEIN 8.3 g/dL (6.4-8.2)
[2020-10-13] LABS: MICROSCOPIC AUTO
[2020-10-13 00:26] VITALS: BP 111/60
--- NOTE | 2020-10-13 01:18 | NUR ---
Patient/Caregiver given discharge instructions and they have confirmed that they understand the instructions. Patient ambulatory with steady gait.PIV DC PRIOR TO PT DC
== END 2020-10-13 01:18 | disposition home or self-care (01) ==
LOC: ED 23:18
DX: E11.65 Type 2 diabetes mellitus with hyperglycemia (principal); N23 Unspecified renal colic; K21.9 Gastro-esophageal reflux disease without esophagitis; R11.0 Nausea; M54.5 Low back pain; I10 Essential (primary) hypertension; E87.1 Hypo-osmolality and hyponatremia; G40.909 Epilepsy, unspecified, not intractable, without status epilepticus; Z90.49 Acquired absence of other specified parts of digestive tract; Z98.51 Tubal ligation status; Z86.73 Personal history of transient ischemic attack (TIA), and cerebral infarction without residual deficits
CPT/HCPCS: 36415; 80053; 81001; 85025; 87086; 96361; 96374; 96375; 99284; J1885; J2270; J2405; J7030

== ENCOUNTER 2020-10-21 09:20 | Day surgery (SDC) | payer OTHER ==
[2020-10-19 09:38] LABS: ALBUMIN 3.7 g/dL (3.4-5.0); ANION GAP 6 mmol/L (5-15); CHLORIDE 102 mmol/L (98-107)
[2020-10-19 09:42] LABS: ALANINE AMINOTRANSFERASE 36 U/L (12-78); ALKALINE PHOSPHATASE 206 U/L (45-117); BILIRUBIN,TOTAL 0.5 mg/dL (0.2-1.0); CREATININE 0.67 mg/dL (0.55-1.02); TOTAL PROTEIN 8.6 g/dL (6.4-8.2)
[2020-10-19 09:49] LABS: MICROSCOPIC INDICATED
[2020-10-19 09:50] LABS: BASOPHILS % (AUTO) 1 % (0-1); EOSINOPHILS % (AUTO) 4 % (1-7); INTERNATIONAL NORMALIZED RATIO 0.99 (0.93-1.1); LYMPHOCYTES % (AUTO) 33 % (22-44); MEAN CORPUSCULAR HEMOGLOBIN 20.9 pg (27.0-34.8); MEAN CORPUSCULAR HGB CONC 30.6 g/dL (32.4-35.8); MEAN PLATELET VOLUME 9.3 fL (7.4-10.4); MONOCYTES % (AUTO) 5 % (2-9); NEUTROPHILS % (AUTO) 57 % (42-75); PLATELET COUNT 450 x10^3/uL (130-400); PROTHROMBIN TIME 10.6 Seconds (9.6-11.5); RED BLOOD COUNT 4.69 x10^6/uL (3.82-5.3); RED CELL DISTRIBUTION WIDTH 17.3 % (9.6-15.2)
[2020-10-19 10:10] LABS: MD SCAN
[~2020-10-21] VITALS: Ht 154.9 cm; Wt 61.0 kg
[~2020-10-21 09:20] MED LIST changes: -ASPI-515 PO; +ASPI-963 PO
[2020-10-21] MEDS ORDERED: LACTATED RINGERS 1,000 ML IV SCH (09:30)
[2020-10-21] MEDS ORDERED: CHLORHEXIDINE 15 ML UDC MM ONE (09:30)
[2020-10-21] MEDS ORDERED: CHLORHEXIDINE 15 ML UDC ONE (09:31)
[2020-10-21] MEDS ORDERED: MIDAZOLAM 1 MG/ML, 2ML ONE (09:43)
[2020-10-21] MEDS ORDERED: FENTANYL PF 250 MCG/5ML ONE (09:44)
[2020-10-21 09:46] VITALS: BP 111/76
[2020-10-21] MEDS ORDERED: ROCURONIUM 10MG/ML,5ML ONE (09:47)
[2020-10-21] MEDS ORDERED: PROPOFOL 10 MG/ML, 20ML ONE (09:47)
[2020-10-21] MEDS ORDERED: GLYCOPYRROLATE 0.2MG/1ML, 5ML ONE (09:47)
[2020-10-21] MEDS ORDERED: ONDANSETRON 2MG/ML, 2ML ONE (09:47)
[2020-10-21] MEDS ORDERED: CEFAZOLIN 1,000 MG ONE (09:47)
[2020-10-21] MEDS ORDERED: NEOSTIGMINE 1 MG/ML, 10ML ONE (09:47)
[2020-10-21] MEDS ORDERED: DEXAMETHASONE 4 MG/ML, 1ML ONE (09:47)
[2020-10-21] MEDS ORDERED: hydrALAzine 20 MG/ML, 1ML IV PRN (11:00)
[2020-10-21] MEDS ORDERED: PROMETHAZINE 25 MG/ML, 1ML IVPush PRN (11:00)
[2020-10-21] MEDS ORDERED: HYDROmorphone 1 MG/ML, 1ML INJ IVPush PRN (11:00)
[2020-10-21] MEDS ORDERED: OXYcodone 5 MG/5 ML ORAL.SOL UDC PO PRN (11:00)
[2020-10-21] MEDS ORDERED: LABETALOL 5MG/ML, 20ML IV PRN (11:00)
[2020-10-21] MEDS ORDERED: ACETAMINOPHEN 325 MG TABLET PO PRN (11:00)
[2020-10-21] MEDS ORDERED: HALOPERIDOL 5 MG/ML IV PRN (11:00)
[2020-10-21] MEDS ORDERED: morphine SULFATE 10 MG/ML, 1ML IVPush PRN (11:00)
[2020-10-21] MEDS: FENTANYL PF 100 MCG/2ML IV PRN ×2 (12:07→12:22)
[2020-10-21] MEDS ORDERED: OXYcodone 5 MG/5 ML ORAL.SOL UDC ONE (12:11)
[2020-10-21] MEDS ORDERED: FENTANYL PF 100 MCG/2ML ONE (12:11)
[2020-10-21] MEDS ORDERED: HYDROmorphone 1 MG/ML, 1ML INJ ONE (12:24)
== END 2020-10-21 14:40 | disposition home or self-care (01) ==
LOC: OUT 09:20
PROVIDERS: ATTEND Student in an Organized Health Care Education/Training Program
DX: N20.2 Calculus of kidney with calculus of ureter (principal); Z20.822 Contact with and (suspected) exposure to COVID-19; Z96.0 Presence of urogenital implants; Z79.4 Long term (current) use of insulin; Z79.899 Other long term (current) drug therapy; Z72.89 Other problems related to lifestyle; F17.210 Nicotine dependence, cigarettes, uncomplicated; Z79.01 Long term (current) use of anticoagulants; Z82.49 Family history of ischemic heart disease and other diseases of the circulatory system; Z83.3 Family history of diabetes mellitus
CPT/HCPCS: 36415; 52353; 74018; 80053; 81001; 81025; 82360; 82962; 85025; 85610; 87086; 88300; 93005; C1769; J0690; J1100; J1170; J2250; J2405; J2704; J2710; J3010; J7120; U0003; 76000

== ENCOUNTER 2020-11-07 23:29 | Emergency (ER) | payer SELFPAY ==
[~2020-11-07] VITALS: Ht 157.5 cm; Wt 62.0 kg
[2020-11-08] MEDS ORDERED: MORPHINE SULFATE 4 MG/ML, 1ML IVPush PRN
[2020-11-08] MEDS ORDERED: ONDANSETRON 2MG/ML, 2ML IVPush ONE
[2020-11-08] MEDS ORDERED: SODIUM CHLORIDE FLUSH 10ML SYR IVF ONE
[2020-11-08] MEDS ORDERED: KETOROLAC 30 MG/1 ML IVPush ONE
[2020-11-08 00:09] LABS: BASOPHILS % (AUTO) 1 % (0-1); EOSINOPHILS % (AUTO) 2 % (1-7); LYMPHOCYTES % (AUTO) 43 % (22-44); MEAN CORPUSCULAR HEMOGLOBIN 21.8 pg (27.0-34.8); MEAN CORPUSCULAR HGB CONC 31.6 g/dL (32.4-35.8); MEAN PLATELET VOLUME 9.3 fL (7.4-10.4); MONOCYTES % (AUTO) 5 % (2-9); NEUTROPHILS % (AUTO) 49 % (42-75); PLATELET COUNT 245 x10^3/uL (130-400); RED BLOOD COUNT 4.01 x10^6/uL (3.82-5.3); RED CELL DISTRIBUTION WIDTH 18.4 % (9.6-15.2)
[2020-11-08 00:11] LABS: MD NO
[2020-11-08] MEDS ORDERED: MORPHINE SULFATE 4 MG/ML, 1ML ONE (00:16)
[2020-11-08] MEDS ORDERED: ONDANSETRON 2MG/ML, 2ML ONE (00:16)
[2020-11-08] MEDS ORDERED: KETOROLAC 30 MG/1 ML ONE (00:16)
[2020-11-08 00:20] LABS: ALANINE AMINOTRANSFERASE 19 U/L (12-78); ALBUMIN 3.4 g/dL (3.4-5.0); ANION GAP 8 mmol/L (5-15); CALCIUM 8.6 mg/dL (8.5-10.1); CHLORIDE 105 mmol/L (98-107); CREATININE 0.65 mg/dL (0.55-1.02)
[2020-11-08 00:25] LABS: ALKALINE PHOSPHATASE 90 U/L (45-117); BILIRUBIN,TOTAL 0.2 mg/dL (0.2-1.0); TOTAL PROTEIN 7.3 g/dL (6.4-8.2)
[2020-11-08 00:43] LABS: MICROSCOPIC NOT IND
[2020-11-08 02:05] VITALS: BP 124/74
== END 2020-11-08 02:07 | disposition home or self-care (01) ==
LOC: ED 11-08 00:01
DX: R10.33 Periumbilical pain (principal); R10.9 Unspecified abdominal pain; R11.0 Nausea; I10 Essential (primary) hypertension; E11.9 Type 2 diabetes mellitus without complications; G40.909 Epilepsy, unspecified, not intractable, without status epilepticus; F17.210 Nicotine dependence, cigarettes, uncomplicated; Z90.49 Acquired absence of other specified parts of digestive tract; Z86.73 Personal history of transient ischemic attack (TIA), and cerebral infarction without residual deficits; Z98.51 Tubal ligation status
CPT/HCPCS: 36415; 80053; 81003; 83690; 84703; 85025; 96374; 96375; 99284; 99406; J1885; J2270; J2405

== ENCOUNTER 2020-12-09 17:12 | Emergency (ER) | payer SELFPAY ==
[~2020-12-09] VITALS: Ht 157.5 cm; Wt 63.6 kg
[2020-12-09 17:16] VITALS: BP 127/70
== END 2020-12-09 17:46 | disposition home or self-care (01) ==
LOC: ED 17:35
DX: E10.40 Type 1 diabetes mellitus with diabetic neuropathy, unspecified (principal); Z76.0 Encounter for issue of repeat prescription; F17.200 Nicotine dependence, unspecified, uncomplicated; I10 Essential (primary) hypertension; Z86.73 Personal history of transient ischemic attack (TIA), and cerebral infarction without residual deficits; Z90.49 Acquired absence of other specified parts of digestive tract
CPT/HCPCS: 82962; 99281

== ENCOUNTER 2020-12-29 23:16 | Emergency (ER) | payer SELFPAY ==
[~2020-12-29] VITALS: Ht 157.5 cm; Wt 65.6 kg
[2020-12-30 00:12] LABS: ALANINE AMINOTRANSFERASE 26 U/L (12-78); ALBUMIN 3.6 g/dL (3.4-5.0); ANION GAP 5 mmol/L (5-15); BASOPHILS % (AUTO) 0 % (0-1); CALCIUM 8.1 mg/dL (8.5-10.1); CHLORIDE 110 mmol/L (98-107); CREATININE 0.76 mg/dL (0.55-1.02); EOSINOPHILS % (AUTO) 1 % (1-7); LYMPHOCYTES % (AUTO) 24 % (22-44); MEAN CORPUSCULAR HEMOGLOBIN 20.9 pg (27.0-34.8); MEAN CORPUSCULAR HGB CONC 31.1 g/dL (32.4-35.8); MEAN PLATELET VOLUME 9.3 fL (7.4-10.4); MONOCYTES % (AUTO) 5 % (2-9); NEUTROPHILS % (AUTO) 71 % (42-75); PLATELET COUNT 278 x10^3/uL (130-400); RED BLOOD COUNT 3.96 x10^6/uL (3.82-5.3); RED CELL DISTRIBUTION WIDTH 17.2 % (9.6-15.2)
[2020-12-30 00:13] LABS: MD NO
[2020-12-30 00:15] LABS: ALKALINE PHOSPHATASE 83 U/L (45-117); BILIRUBIN,TOTAL 0.2 mg/dL (0.2-1.0); TOTAL PROTEIN 7.4 g/dL (6.4-8.2)
[2020-12-30 00:23] LABS: MICROSCOPIC AUTO
[2020-12-30] MEDS ORDERED: MORPHINE SULFATE 4 MG/ML, 1ML IVPush PRN (00:30)
[2020-12-30] MEDS ORDERED: ONDANSETRON 2MG/ML, 2ML IVPush ONE (00:30)
[2020-12-30] MEDS ORDERED: MORPHINE SULFATE 4 MG/ML, 1ML ONE (00:39)
[2020-12-30] MEDS ORDERED: ONDANSETRON 2MG/ML, 2ML ONE (00:39)
[2020-12-30] MEDS ORDERED: OMNIPAQUE 350 MG/ML, 100ML BOTTLE ONE (01:02)
[2020-12-30 02:51] VITALS: BP 110/72
== END 2020-12-30 02:52 | disposition home or self-care (01) ==
LOC: ED 23:49
DX: N30.00 Acute cystitis without hematuria (principal); R10.31 Right lower quadrant pain; I10 Essential (primary) hypertension; E11.9 Type 2 diabetes mellitus without complications; K21.9 Gastro-esophageal reflux disease without esophagitis; G40.909 Epilepsy, unspecified, not intractable, without status epilepticus; F17.210 Nicotine dependence, cigarettes, uncomplicated; Z90.49 Acquired absence of other specified parts of digestive tract; Z98.51 Tubal ligation status
CPT/HCPCS: 36415; 74177; 80053; 81001; 83690; 84703; 85025; 87077; 87086; 87186; 96374; 96375; 99285; 99406; J2270; J2405; Q9967

== ENCOUNTER 2021-02-10 17:48 | Emergency (ER) | payer SELFPAY ==
[~2021-02-10] VITALS: Ht 157.5 cm; Wt 59.1 kg
[~2021-02-10 17:48] MED LIST changes: -HYDR-1067 PO; +HYDR-2214 PO
--- NOTE | 2021-02-10 18:16 | NUR ---
PIPE COREMAKER: EKG COMPLETE IN TRIAGE.
[2021-02-10 18:41] LABS: MEAN CORPUSCULAR HEMOGLOBIN 19.6 pg (27.0-34.8); MEAN PLATELET VOLUME 8.9 fL (7.4-10.4); PLATELET COUNT 352 x10^3/uL (130-400); RED BLOOD COUNT 5.04 x10^6/uL (3.82-5.3); RED CELL DISTRIBUTION WIDTH 16.7 % (9.6-15.2)
[2021-02-10 18:51] LABS: ALANINE AMINOTRANSFERASE 23 U/L (12-78); ALBUMIN 4.5 g/dL (3.4-5.0); ANION GAP 10 mmol/L (5-15); CALCIUM 9.2 mg/dL (8.5-10.1); CHLORIDE 100 mmol/L (98-107)
[2021-02-10 18:58] LABS: ALKALINE PHOSPHATASE 112 U/L (45-117); BILIRUBIN,TOTAL 0.5 mg/dL (0.2-1.0); TOTAL PROTEIN 9.3 g/dL (6.4-8.2)
[2021-02-10] MEDS ORDERED: SODIUM CHLORIDE FLUSH 10ML SYR IVF ONE (19:00)
[2021-02-10] MEDS ORDERED: SODIUM CHLORIDE 0.9% 1,000ML IVBOLUS ONE (19:00)
[2021-02-10 19:01] LABS: MEAN CORPUSCULAR HGB CONC 29.8 g/dL (32.4-35.8)
[2021-02-10 19:02] LABS: MD YES
[2021-02-10 19:03] LABS: LYMPH#(MANUAL) 1.31 x10^3/uL (1-3.4); LYMPHS% (MANUAL) 10 % (22-44); MONOS#(MANUAL) 0.13 x10^3/uL (0.3-2.7); MONOS% (MANUAL) 1 % (2-9); SEG#(MANUAL) 11.66 x10^3/uL (1.8-6.8); SEGS% (MANUAL) 89 % (42-75)
[2021-02-10 19:04] LABS: <PLATELET ESTIMATE> ADEQUATE; <PLT MORPHOLOGY> NORMAL PLT MORPH; ANISOCYTOSIS 1+; HYPOCHROMIA 1+; MICROCYTOSIS 1+
[2021-02-10 19:05] LABS: STOMATOCYTES 1+
--- NOTE | 2021-02-10 19:06 | NUR ---
PT AMBULATED TO RESTROOM WITH STEADY GAIT TO PROVIDE URINE SAMPLE. UA COLLECTED AND SENT TO LAB.
[2021-02-10 19:23] LABS: MICROSCOPIC AUTO
[2021-02-10] MEDS ORDERED: ONDANSETRON 2MG/ML, 2ML ONE (19:56)
[2021-02-10] MEDS ORDERED: ONDANSETRON 2MG/ML, 2ML IVPush ONE (20:00)
[2021-02-10] MEDS ORDERED: ACETAMINOPHEN 500 MG TABLET ONE (20:41)
--- NOTE | 2021-02-10 20:43 | NUR ---
MANAGER OF DATA PER NOV. PT PROVIDED WATER FOR PO CHALLENGE. PT DENIES N/V AFTER WATER. CHART UP FOR RECHECK.
[2021-02-10] MEDS ORDERED: ACETAMINOPHEN 500 MG TABLET PO ONE (21:00)
--- NOTE | 2021-02-10 21:03 | NUR ---
ERMD AT BEDSIDE TO UPDATE PT ON POC.
[2021-02-10 21:21] VITALS: BP 109/68
== END 2021-02-10 21:23 | disposition home or self-care (01) ==
LOC: ED 20:15
DX: G40.301 Generalized idiopathic epilepsy and epileptic syndromes, not intractable, with status epilepticus (principal); N30.00 Acute cystitis without hematuria; R11.2 Nausea with vomiting, unspecified; F17.210 Nicotine dependence, cigarettes, uncomplicated; I10 Essential (primary) hypertension; E11.9 Type 2 diabetes mellitus without complications; Z86.73 Personal history of transient ischemic attack (TIA), and cerebral infarction without residual deficits; Z90.49 Acquired absence of other specified parts of digestive tract
CPT/HCPCS: 36415; 74021; 80053; 81001; 84703; 85025; 87077; 87086; 93005; 96361; 96374; 99285; 99406; J2405; J7030; 87186

== ENCOUNTER 2021-04-10 03:25 | Emergency (ER) | payer SELFPAY ==
[~2021-04-10] VITALS: Ht 157.5 cm; Wt 70.0 kg
[~2021-04-10 03:25] MED LIST changes: -OMEP40CA42 PO; +OMEP40CA8 PO
[2021-04-10 04:02] LABS: BASOPHILS % (AUTO) 1 % (0-1); EOSINOPHILS % (AUTO) 5 % (1-7); LYMPHOCYTES % (AUTO) 30 % (22-44); MEAN CORPUSCULAR HEMOGLOBIN 20.1 pg (27.0-34.8); MEAN CORPUSCULAR HGB CONC 30.2 g/dL (32.4-35.8); MEAN PLATELET VOLUME 9.2 fL (7.4-10.4); MONOCYTES % (AUTO) 7 % (2-9); NEUTROPHILS % (AUTO) 57 % (42-75); PLATELET COUNT 270 x10^3/uL (130-400); RED BLOOD COUNT 4.56 x10^6/uL (3.82-5.3); RED CELL DISTRIBUTION WIDTH 18.5 % (9.6-15.2)
[2021-04-10 04:14] LABS: ALANINE AMINOTRANSFERASE 20 U/L (12-78); ALBUMIN 3.5 g/dL (3.4-5.0); ANION GAP 3 mmol/L (5-15); CALCIUM 8.8 mg/dL (8.5-10.1); CHLORIDE 110 mmol/L (98-107); CREATININE 0.57 mg/dL (0.55-1.02)
[2021-04-10 04:18] LABS: ALKALINE PHOSPHATASE 85 U/L (45-117); BILIRUBIN,TOTAL 0.2 mg/dL (0.2-1.0); TOTAL PROTEIN 7.9 g/dL (6.4-8.2)
--- NOTE | 2021-04-10 05:20 | NUR ---
PT. TO ROOM FROM LOBBY AT THIS TIME.
[2021-04-10] MEDS ORDERED: HYDROcodone/APAP 5/325 TABLET ONE (05:35)
--- NOTE | 2021-04-10 05:47 | NUR ---
LATE ENTRY: PT. TO ED WITH C/O RIGHT FLANK PAIN. HX OF KIDNEY STONES. STATES THIS FEELS THE SAME. MEDICATED PER NOV. URINE SENT TO LAB. VS UPDATED. ALL SAFETY MEASUERS OBSERVED.
[2021-04-10 05:56] LABS: MICROSCOPIC AUTO
[2021-04-10] MEDS ORDERED: HYDROcodone/APAP 5/325 TABLET PO ONE (06:00)
--- NOTE | 2021-04-10 06:21 | NUR ---
PT. OUT OF ROOM FOR US.
--- NOTE | 2021-04-10 06:55 | NUR ---
REPORT FROM JESSICA RN WITH ASSESSMENT PATIENT APPEARS WELL. REPORT "MY PAIN/NAUSE IS IMPROVED." PO CHALLENGE AND ROAD TEST UNREMARKABLE
[2021-04-10 07:34] VITALS: BP 137/80
== END 2021-04-10 07:37 | disposition home or self-care (01) ==
LOC: ED 07:20
DX: N30.01 Acute cystitis with hematuria (principal); R10.31 Right lower quadrant pain; I10 Essential (primary) hypertension; E11.9 Type 2 diabetes mellitus without complications; Z86.73 Personal history of transient ischemic attack (TIA), and cerebral infarction without residual deficits; Z90.49 Acquired absence of other specified parts of digestive tract; Z87.891 Personal history of nicotine dependence
CPT/HCPCS: 36415; 76770; 80053; 81001; 83690; 84703; 85025; 87077; 87086; 87186; 99284